=== PATIENT | female | born 1940 | race Caucasian/White ===

== ENCOUNTER → 2016-11-28 | Outpatient (CLI) | payer BC ==
[~2016-11-28] MED LIST: AMB5 PO; ATEN50TA8 PO; CALC-5 PO; CHOL100010 PO; MCR/40125 PO; PRLSR20 PO; SIMV20TA2 PO
[2016-11-28 13:50] LABS: ESTIMATED AVERAGE GLUCOSE 123 mg/dl; HA1C FLAG Normal (Normal)
[2016-11-28 15:35] LABS: ALT/SGPT 19 U/L (12-78); BLOOD UREA NITROGEN 24 mg/dl (7-18); BUN/CREATININE RATIO 20.2 (10-20); CALCIUM 9.4 mg/dl (8.5-10.1); CARBON DIOXIDE 30 mmol/L (21-32); CHLORIDE 105 mmol/L (98-107); GLUCOSE 101 mg/dl (70-99); POTASSIUM 4.1 mmol/L (3.5-5.1); SODIUM 142 mmol/L (136-145)
[2016-11-28 15:47] LABS: AST/SGOT 21 U/L (15-37); CHOLESTEROL 185 mg/dl (0-200); HDL CHOLESTEROL 61 mg/dl; LDL CHOLESTEROL CALCULATED 102 mg/dl; TRIGLYCERIDES 111 mg/dl (0-150); VERY LOW DENSITY LIPOPROT CALC 22 mg/dl
--- NOTE | 2016-12-03 13:40 | CODING QUERY MEDICAL NECESSITY ---
SUPPORTING DIAGNOSIS NEEDED A supporting diagnosis is required for the test/procedure performed on this patient in order for us to be reimbursed by the patient's insurance. Please provide a supporting diagnosis for the following test/procedure listed below next to the test name along with your signature. *If there is no additional diagnosis for this patient that would support the following test/procedure please document that below next to the test/procedure. Test(s)/Procedure(s) that require a supporting diagnosis: DOS 11/28 * Hba1c DIAGNOSIS: Provider Signature: Date: Thank you Yelitza Sanchez Health Information Management Once completed, please kindly fax back to [phone] For questions please call [phone]
== END | disposition home or self-care (01) ==
LOC: C.LABBC 09:19
PROVIDERS: ATTEND Internal Medicine
DX: E78.00 Pure hypercholesterolemia, unspecified (principal); R73.03 Prediabetes; I10 Essential (primary) hypertension

== ENCOUNTER → 2016-11-29 | Outpatient (CLI) | payer BC ==
--- NOTE | 2016-11-29 13:04 | MAMMOGRAPHY REPORT ---
BILATERAL DIGITAL SCREENING MAMMOGRAM WITH CAD: 11/29/2016 CLINICAL HISTORY: Routine screening. Patient has no complaints. TECHNIQUE: Current study was also evaluated with a Computer Aided Detection (CAD) system. Bilatera l CC and MLO views were obtained. COMPARISON: Comparison is made to exams dated: 11/28/2015 mammogram, 11/25/2014 mammogram, 11/24/2013 mammogram, 11/20/2012 mammogram, 11/07/2011 ultrasound, and 11/07/2011 mammogram - [facility]. BREAST COMPOSITION: There are scattered areas of fibroglandular density in both breasts. FINDINGS: No suspicious masses, calcifications, or areas of architectural distortion are noted in e ither breast. There has been no significant interval change compared to prior exams. There is stabl e asymmetry in breast size, right larger than left. Bilateral benign appearing calcifications are n ot significantly changed. Bilateral asymmetries are stable, including a small nodular asymmetry see n within the right anterior breast on the MLO view which is stable dating back to at least the 2010 exam. IMPRESSION: ACR BI-RADS CATEGORY 2: BENIGN There is no mammographic evidence of malignancy. A 1 year screening mammogram is recommended. The p atient will receive written notification of the results. Approximately 10% of breast cancers are not detected with mammography. A negative mammographic repor t should not delay biopsy if a clinically suggestive mass is present. Ashwini Leblanc M.D. /:11/29/2016 11:20:10 Tile Presser: Ana FLOOD)(Chuyita), [facility] letter sent: Normal 1/2 BI-RADS Code: ACR BI-RADS Category 2: Benign
== END | disposition home or self-care (01) ==
LOC: C.MAMM 10:34
PROVIDERS: ATTEND Obstetrics & Gynecology
DX: Z12.31 Encounter for screening mammogram for malignant neoplasm of breast (principal)

== ENCOUNTER → 2017-01-14 | Outpatient (CLI) | payer BC | LOC: C.PAPS 16:12 | PROVIDERS: ATTEND Obstetrics & Gynecology | DX: R68.89 Other general symptoms and signs (principal) ==

== ENCOUNTER → 2017-05-29 | Outpatient (CLI) | payer BC ==
[2017-05-29 13:41] LABS: URINE APPEARANCE CLOUDY (CLEAR); URINE BILIRUBIN NEG (NEG); URINE COLOR YELLOW; URINE EPITHELIAL CELL AUTO 0-5 /lpf (0-5); URINE NITRITE POS (NEG); URINE PH 5.5 (4.5-7.5); URINE SPECIFIC GRAVITY 1.017 (1.000-1.030); UROBILINOGEN NEG (NEG)
[2017-05-29 13:50] LABS: MANUAL MICROSCOPIC REQUIRED? NO; REVIEW REQ? NO
== END | disposition home or self-care (01) ==
LOC: C.LABBC 10:46
PROVIDERS: ATTEND Internal Medicine
DX: R39.9 Unspecified symptoms and signs involving the genitourinary system (principal)

== ENCOUNTER → 2017-07-12 | Outpatient (CLI) | payer BC ==
--- NOTE | 2017-07-12 15:20 | ECHOCARDIOGRAM REPORT ---
*NOTICE TO RECEIVING DEMOCRAT AGENCY This information is strictly Confidential and protected under [place] law. [place] law prohibits you from making any further disclosure of this information unless further disclosure is expressly permitted by the written consent of the person to whom it pertains or is authorized by law. A general authorization for the release of medical or other information is not sufficient for this purpose. Hospital accepts no responsibility if the information is made available to any other person, INCLUDING THE PATIENT. Interpretation Summary * Name: UCHE HUTSON Study Date: 07/12/2017 12:41 PM BP: 138/46 mmHg * Patient Location: [facility] HR: 56 * : 1940 (M/d/yyyy) Gender: Female Height: 64 in * Age: 76 yrs Ethnicity: [place] Weight: 200 lb * Ordering Physician: Sanchez Ivy * Referring Physician: Sanchez Ivy * Performed By: Elin Bailey RDCS * * Reason For Study: Aortic stenosis * BSA: 2.0 m2 * -- Conclusions -- * Left ventricular systolic function is normal. * Diastolic dysfunction, Grade II, consistent with elevated left atrial pressure. * Mild aortic regurgitation. * Mild valvular aortic stenosis. * Right ventricular systolic pressure is normal. Procedure Details * A complete two-dimensional transthoracic echocardiogram was performed (2D, M-mode, Doppler and color flow Doppler). Left Ventricle * The left ventricle is normal in size. * There is normal left ventricular wall thickness. * Ejection Fraction = 60-65%. * Left ventricular systolic function is normal. * Diastolic dysfunction, Grade II, consistent with elevated left atrial pressure. * The left ventricular wall motion is normal. Right Ventricle * The right ventricle is normal in size and function. * The right ventricular systolic function is normal as assessed by tricuspid annular plane systolic excursion (TAPSE) (normal >1.5 cm). Atria * The left atrial size is normal. * Right atrial size is normal. Mitral Valve * The mitral valve is grossly normal. * Significant mitral regurgitation is absent. Tricuspid Valve * The tricuspid valve is not well visualized, but is grossly normal. * There is trace tricuspid regurgitation. * Right ventricular systolic pressure is normal. Aortic Valve * The aortic valve is not well visualized. * Mild valvular aortic stenosis. * Mild aortic regurgitation. Great Vessels * The aortic root is normal size. Pericardium/Pleural * There is no pericardial effusion. Great Vessels * Normal inferior vena cava diameter and respiratory variation suggests normal central venous pressure. MMode 2D Measurements and Calculations IVSd 0.92 cm LVIDd 4.0 cm LVIDs 2.8 cm LVPWd 0.94 cm IVS/LVPW 0.98 FS 30.9 % EDV(Teich) 69.8 ml ESV(Teich) 28.6 ml EF(Teich) 59.1 % EDV(cubed) 63.8 ml ESV(cubed) 21.1 ml EF(cubed) 67.0 % LV mass(C)d 114.4 grams LV mass(C)dI 58.5 grams/m\S\2 SV(Teich) 41.2 ml SI(Teich) 21.1 ml/m\S\2 SV(cubed) 42.7 ml SI(cubed) 21.8 ml/m\S\2 Ao root diam 3.6 cm Ao root area 10.4 cm\S\2 ACS 1.8 cm asc Aorta Diam 2.9 cm LVOT diam 2.0 cm LVOT area 3.0 cm\S\2 LVAd ap4 28.8 cm\S\2 LVLd ap4 6.9 cm EDV(MOD-sp4) 96.4 ml EDV(sp4-el) 101.6 ml LVAs ap4 15.7 cm\S\2 LVLs ap4 5.9 cm ESV(MOD-sp4) 35.0 ml ESV(sp4-el) 35.3 ml EF(MOD-sp4) 63.7 % EF(sp4-el) 65.2 % LVAd ap2 14.7 cm\S\2 LVLd ap2 6.6 cm EDV(MOD-sp2) 28.3 ml EDV(sp2-el) 27.9 ml LVAs ap2 9.0 cm\S\2 LVLs ap2 6.1 cm ESV(MOD-sp2) 11.1 ml ESV(sp2-el) 11.2 ml EF(MOD-sp2) 60.9 % EF(sp2-el) 59.7 % LVLd %diff -5.01 % EDV(MOD-bp) 53.8 ml LVLs %diff 2.5 % ESV(MOD-bp) 20.1 ml EF(MOD-bp) 62.7 % SV(MOD-sp4) 61.4 ml SI(MOD-sp4) 31.4 ml/m\S\2 SV(MOD-sp2) 17.2 ml SI(MOD-sp2) 8.8 ml/m\S\2 SV(MOD-bp) 33.7 ml SI(MOD-bp) 17.2 ml/m\S\2 SV(sp4-el) 66.3 ml SI(sp4-el) 33.9 ml/m\S\2 SV(sp2-el) 16.7 ml SI(sp2-el) 8.5 ml/m\S\2 Doppler Measurements and Calculations MV E max trey 94.7 cm/sec MV A max trey 56.7 cm/sec MV E/A 1.7 MV dec time 0.19 sec Ao V2 max 280.4 cm/sec Ao max PG 31.4 mmHg Ao max PG (full) 29.1 mmHg Ao V2 mean 185.9 cm/sec Ao mean PG 15.9 mmHg Ao V2 VTI 68.9 cm BERNICE(V,A) 0.83 cm\S\2 BERNICE(V,D) 0.83 cm\S\2 AI max trey 332.8 cm/sec AI max PG 44.3 mmHg AI dec slope 122.0 cm/sec\S\2 AI P1/2t 798.7 msec LV V1 max PG 2.3 mmHg LV V1 max 76.5 cm/sec SV(Ao) 714.8 ml SI(Ao) 365.5 ml/m\S\2 PA V2 max 65.6 cm/sec PA max PG 1.7 mmHg PA acc slope 431.4 cm/sec\S\2 PA acc time 0.13 sec TR max trey 146.6 cm/sec PA pr(Accel) 22.8 mmHg
== END | disposition home or self-care (01) ==
LOC: C.CPL 12:26
PROVIDERS: ATTEND Internal Medicine
DX: I35.0 Nonrheumatic aortic (valve) stenosis (principal)

== ENCOUNTER → 2017-11-07 | Outpatient (CLI) | payer BC | END | disposition home or self-care (01) | LOC: C.LAB1850 10:35 | PROVIDERS: ATTEND Internal Medicine | DX: E78.00 Pure hypercholesterolemia, unspecified (principal); M25.50 Pain in unspecified joint; R73.9 Hyperglycemia, unspecified ==

== ENCOUNTER → 2017-12-02 | Outpatient (CLI) | payer BC ==
--- NOTE | 2017-12-03 07:38 | MAMMOGRAPHY REPORT ---
BILATERAL DIGITAL SCREENING MAMMOGRAM TOMOSYNTHESIS WITH CAD: 12/02/2017 CLINICAL HISTORY: Routine screening. Patient reports itchy right nipple. TECHNIQUE: Breast tomosynthesis in addition to standard 2D mammography was performed. Current study was also evaluated with a Computer Aided Detection (CAD) system. COMPARISON: Comparison is made to exams dated: 11/29/2016 mammogram, 11/28/2015 mammogram, 11/25/2014 m ammogram, 11/24/2013 mammogram, 11/20/2012 mammogram, and 11/01/2011 mammogram - [facility] enter. BREAST COMPOSITION: There are scattered areas of fibroglandular density in both breasts. FINDINGS: There are mild vascular calcifications in the breasts. The glandular pattern is similar to prior mammograms. No new suspicious mass, architectural distortion or cluster of microcalcification s is seen. IMPRESSION: ACR BI-RADS CATEGORY 1: NEGATIVE 1. Stable bilateral mammograms, without mammographic evidence of malignancy. 2. The patient reported an itchy right nipple area to our registered vascular technologist (rvt) during the screen ing exam. Clinical follow-up is recommended for this symptom and if indicated, additional evaluation by surgery/dermatology may be needed. 3. Otherwise, a 1 year screening mammogram is recommended. The patient will receive written notification of the results. Approximately 10% of breast cancers are not detected with mammography. A negative mammographic report should not delay biopsy if a clinically suggestive mass is present. Sol Huynh M.D. ay/:12/02/2017 12:28:30 Petrology Teacher: Holly BROWNE(Miguel)(Chuyita), [facility] letter sent: Normal 1/2 BI-RADS Code: ACR BI-RADS Category 1: Negative
== END ==
LOC: C.MAMM 09:59
PROVIDERS: ATTEND Obstetrics & Gynecology
DX: Z12.31 Encounter for screening mammogram for malignant neoplasm of breast (principal)

== ENCOUNTER → 2017-12-06 | Outpatient (CLI) | payer BC ==
[2017-12-06 11:31] LABS: ALT/SGPT 23 U/L (12-78); AST/SGOT 22 U/L (15-37); BLOOD UREA NITROGEN 33 mg/dl (7-18); CALCIUM 9.8 mg/dl (8.5-10.1); CARBON DIOXIDE 29 mmol/L (21-32); CREATININE 1.21 mg/dl (0.60-1.20); GLUCOSE 102 mg/dl (70-99); HEMOGLOBIN A1C 5.9 % (4.5-5.6); POTASSIUM 4.1 mmol/L (3.5-5.1); SODIUM 137 mmol/L (136-145)
[2017-12-06 11:33] LABS: CHOLESTEROL 200 mg/dl (0-200); LDL CHOLESTEROL CALCULATED 126 mg/dl
== END | disposition home or self-care (01) ==
LOC: C.LABBC 08:28
PROVIDERS: ATTEND Internal Medicine
DX: E78.00 Pure hypercholesterolemia, unspecified (principal); E73.9 Lactose intolerance, unspecified

== ENCOUNTER 2019-05-29 08:07 | Inpatient (IN) ==
--- NOTE | 2019-05-13 15:52 | PAT Medication Instructions ---
Medication Instructions Date of Service May 13, 2019 Home Medications calcium carbonate-vitamin D3 [Calcium 500 + D] 1 tab PO BID cholecalciferol (vitamin D3) [Vitamin D3] 1,000 unit PO BID apixaban 5 mg tablet 5 mg PO BID metoprolol succinate ER 100 mg tablet,extended release 24 hr 100 mg PO QAM telmisartan 20 mg tablet 20 mg PO QAM vitamins A,C,U-akvn-sqkudj 14,320 unit-226 mg-200 unit capsule 1 cap PO BID ibuprofen 200 mg tablet 400 mg PO QID PRN simvastatin 20 mg tablet 20 mg PO QPM hydrochlorothiazide 12.5 mg PO QAM omeprazole 20 mg PO QAM zaleplon 5 mg PO DAILY PRN ASK your surgeon for instructions ibuprofen 200 mg tablet 400 mg PO QID PRN ASK your prescriber and surgeon apixaban 5 mg tablet 5 mg PO BID (in order for spinal anesthesia, apixaban/Eliqu is needs to be stopped 72 hours/3 days prior to surgery- please check if okay with doctor that prescribes this to you) DO NOT take the morning of surgery calcium carbonate-vitamin D3 [Calcium 500 + D] 1 tab PO BID cholecalciferol (vitamin D3) [Vitamin D3] 1,000 unit PO BID telmisartan 20 mg tablet 20 mg PO QAM vitamins A,C,C-niww-mcelpa 14,320 unit-226 mg-200 unit capsule 1 cap PO BID hydrochlorothiazide 12.5 mg PO QAM zaleplon 5 mg PO DAILY PRN Take morning of surgery With a small sip of water, OTHERWISE NOTHING TO EAT OR DRINK AFTER MIDNIGHT: metoprolol succinate ER 100 mg tablet,extended release 24 hr 100 mg PO QAM omeprazole 20 mg PO QAM Take evening before surgery calcium carbonate-vitamin D3 [Calcium 500 + D] 1 tab PO BID cholecalciferol (vitamin D3) [Vitamin D3] 1,000 unit PO BID simvastatin 20 mg tablet 20 mg PO QPM zaleplon 5 mg PO DAILY PRN (if needed) Other Notes If you have any questions please call us at [phone] or [phone] or [phone] or [phone]
--- NOTE | 2019-05-14 09:08 | Anesthesiology Consultation ---
Date of Service May 14, 2019 Assessment & Plan (1) Encounter for pre-operative examination: - Awaiting review preop testing (labs, EKG, CXR). - Per patient, she is seeing cardiology prior to surgery- Awaiting cardiology office visit scheduled 05/21 ([facility] cardio). - Moderate aortic stenosis: BERNICE 1.0cm2, MG 13.2mmhg per 06/2018 ECHO. Discussed SAB vs. GA with patient- she voiced understanding. Chart Review Chart Review: Patient seen in Pre Admission Testing Teaching & Discussion Pre-Anesthesia Teaching/Discussion Notes: Instructed NPO after midnight before surgery,except medications with 15 cc of water. Medication instructions provided according to the PAT guidelines. History Surgery Operation Date: 05/29/19 10:40 Proposed Procedures p Right Total Knee Arthroplasty - Regan Garcia MD Height/Weight Height: 5 ft 3 in Weight: 94.2 kg Allergies Allergy/AdvReac Type Severity Reaction Status Date / Time No Known Drug Allergies Allergy Verified 05/12/19 14:30 Medications Home Medications Medication Instructions Recorded Confirmed Last Taken calcium carbonate-vitamin D3 1 tab PO BID 04/19/18 05/12/19 05/12/18 08:00 [Calcium 500 + D] cholecalciferol (vitamin D3) 1,000 unit PO BID 04/19/18 05/12/19 05/12/18 08:00 [Vitamin D3] apixaban 5 mg tablet 5 mg PO BID 02/25/19 05/12/19 Unknown metoprolol succinate ER 100 mg 100 mg PO QAM tab 02/25/19 05/12/19 Unknown tablet,extended release 24 hr telmisartan 20 mg tablet 20 mg PO QAM tab 02/25/19 05/12/19 Unknown vitamins A,C,D-ysif-ssrefa 14,320 1 cap PO BID 02/25/19 05/12/19 Unknown unit-226 mg-200 unit capsule ibuprofen 200 mg tablet 400 mg PO QID PRN tab 04/16/19 05/12/19 Unknown simvastatin 20 mg tablet 20 mg PO QPM tab 04/16/19 05/12/19 Unknown hydrochlorothiazide 12.5 mg PO QAM 05/12/19 05/12/19 Unknown omeprazole 20 mg PO QAM 05/12/19 05/12/19 Unknown zaleplon 5 mg PO DAILY PRN 05/12/19 05/12/19 Unknown Past Medical History Medical History Paroxysmal atrial fibrillation Irritable bowel syndrome with diarrhea Hypertension Hypercholesterolemia Aortic stenosis Moderate aortic stenosis (BERNICE 1.0cm2, MG 13.2mmhg) Cataract right/left Diverticular disease GERD (gastroesophageal reflux disease) controlled Hx of basal cell carcinoma forehead Macular degeneration right/left Osteoarthritis Prediabetes Exercise / Class Metabolic Activity III < 4 Walking/Shop/Light housework Past Family History Family History Mother Family history of diabetes mellitus Mother Family history of diabetes mellitus Past Surgical History Surgical History History of tubal ligation History of cholecystectomy History of adenoidectomy History of appendectomy History of carpal tunnel release LEFT History of colonoscopy History of tonsillectomy History of tooth extraction History of total knee replacement LEFT Past Anesthesia History No Hx of Anesthesia Complications (except PONV) and No Family Hx of Anesthesia Complications History of PONV No Hx of Motion Sickness (childhood) and History of PONV Social History Smoking Status: Former smoker Do You Dip or Chew Tobacco: No Smoking End Date: QUIT 50+ YEARS AGO Hx Alcohol Use: Yes Alcohol type: wine alcohol intake frequency: holidays/special occasions only Hx Substance Use: No substance use type: does not use Review of Systems Reflux controlled. Occasional palpitations. Patient denies chest pain, shortness of breath, joint pain, cough, wheezing. Physical Exam Vital Signs VITALS BP 138/88 P 94 TEMP 97.9 SP02 97%RA RESP 16 PHYSICAL Full neck and c-spine range of motion. Full TMJ range of motion. TMD 4 finger breaths Mallampati Score 2 Dentition: lower partial, several crowns "all over" Lungs: clear throughout to auscultation Cardiac: regular rate and rhythm, I/ systolic murmur Spine: normal Carotid arteries: negative bruit Extremities: no edema Testing Echocardiogram Date: 06/19/18 EF 55-60%. Moderate cLVH. Grade 2 DD. Mild LAD. Mild AR. Moderate aortic stenosis (AA 1.0cm2, MG 13.2mmhg).
--- NOTE | 2019-05-14 09:50 | XRay Report ---
XR chest Pre-admission PA/Lat HISTORY: Preop. COMPARISON: Chest 02/13/2006. FINDINGS: The heart remains mildly enlarged. No pneumothorax. No pleural effusions. No focal lung con solidations to suggest pneumonia. No evidence for pulmonary edema. Mild diffuse interstitial thickeni ng which is slightly progressed. IMPRESSION: 1. Mild diffuse interstitial thickening which is slightly progressed. This is likely chronic. No foca l lung consolidations to suggest pneumonia. 2. Stable mild cardiomegaly. Electronically signed by: Denton Brady M.D. 05/14/2019 9:49 AM
[2019-05-14 10:05] LABS: Basophils # (auto) 0.03 K/uL (0-0.2); Basophils % (auto) 0.4 %; Eosinophils # (auto) 0.21 K/uL (0-0.5); Eosinophils % (auto) 2.9 %; Hematocrit (blood only) 42.1 % (37-47); Hemoglobin 13.7 g/dL (12.0-16.0); Immature Granulocytes # (auto) 0.01 K/uL (0.00-0.02); Immature Granulocytes % (auto) 0.1 %; Lymphocytes # (auto) 1.84 K/uL (1.2-3.4); Mean Corpuscular Hemoglobin 30.6 pg (25-34); Mean Corpuscular Hgb Conc 32.5 g/dL (32-36); Mean Corpuscular Volume 94.2 fL (80-100); Mean Platelet Volume 11.3 fL (7.4-10.4); Monocytes # (auto) 0.47 K/uL (0.11-0.59); Monocytes % (auto) 6.4 %; Neutrophils # (auto) 4.79 K/uL (1.4-6.5); Neutrophils % (auto) 65.2 %; Platelet Count 197 K/uL (130-400); RDW Coefficient of Variation 13.5 % (11.5-14.5); RDW Standard Deviation 46.6 fL (36.4-46.3); Red Blood Count 4.47 M/uL (4.2-5.4); White Blood Count 7.35 K/uL (4.8-10.8)
[2019-05-14 10:23] LABS: INR 1.2 (0.9-1.1); Partial Thromboplastin Ratio 1.1; Partial Thromboplastin Time 29.3 Seconds (21.0-31.0); Prothrombin Time 11.9 Seconds (9.0-12.0)
--- NOTE | 2019-05-23 10:29 | History and Physical Report ---
DATE OF ADMISSION: 05/29/2019 CHIEF COMPLAINT: Persistent right knee pain and discomfort. 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 She has a long history of right knee pain. I did a left knee replacement many years ago and she has done pretty well from this. Over the years, she is developing more debilitated pain in her right knee. We put injections in there which became less successful over time. They helped for maybe 3 weeks at this point. She has difficulty walking any distance. The more she walks, the more it hurts. She has pain going up and down stairs. She has nighttime pain. She would like to have her right knee replaced. PAST MEDICAL HISTORY: 1. Hypertension. 2. Elevated cholesterol. 3. History of AFib, on Eliquis. 4. Spine arthritis. 5. Gastroesophageal reflux disease. 6. Mild obesity with BMI of 37. PAST SURGICAL HISTORY: Previous surgeries include: 1. Tubal ligation. 2. Cholecystectomy. 3. Left knee replacement. 4. Right trigger thumb repair. 5. Left trigger thumb repair. ALLERGIES: None. CURRENT MEDICINES: 1. Omeprazole once a day. 2. Metoprolol 100 mg. 3. Simvastatin 20 mg a day. 4. Eliquis 5 mg twice a day. 5. Hydrochlorothiazide 12.5 mg. 6. PreserVision twice a day. 7. Calcium with D once a day. SOCIAL HISTORY: A 78-year-old white female. 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 Does not smoke. No significant alcohol intake. FAMILY HISTORY: Noncontributory. REVIEW OF SYSTEMS: Significant for atrial fibrillation and she was on Xarelto. She is followed by Dr. Ramirez. Denies any chest pain or shortness of breath. No history of DVT or PE. No known bleeding problems. PHYSICAL EXAMINATION: GENERAL: Shows a pleasant elderly female. Looks to be in pretty good health. HEENT: Benign. NECK: Supple. No lymphadenopathy. LUNGS: Clear to auscultation. HEART: Has an irregularly irregular rhythm. Rate is fairly normal. ABDOMEN: Soft, nontender, nondistended. EXTREMITIES: Grossly neurovascularly intact except as follows. Examination of the right lower extremity reveals the patient ambulates with a bit of a limp. She has got fairly neutral alignment to her knee. Range of motion is about 5 degrees short of full extension to 115 degrees of flexion. She is diffusely tender to palpate. No instability. No pain with hip motion. X-RAYS: X-ray of the right knee reviewed. It shows a right knee tricompartment DJD. She has complete loss of her lateral joint space. She has got chondrocalcinosis. She has degenerative changes in all 3 compartments. ASSESSMENT: A 78-year-old white female status post left knee replacement with right knee tricompartment degenerative joint disease. She has failed conservative treatment and would like to have her right knee replaced. PLAN: We will take her to the Operating Room and do right total knee replacement. The risks and benefits of this procedure were explained to the patient and include but not limited to DVT, PE, , infection, neurological injury, vascular injury, bleeding problem, pain, limited range of motion, stiffness, failure to relieve symptoms, incomplete relief of symptoms, need for further surgery in future, fracture, leg length inequality, nerve palsy, etc. The patient understands and desires to proceed. Informed consent was obtained. We did talk about holding her Eliquis 3 days preop. She will take her beta-tong the morning of surgery. She is hoping to be discharged home using the home health program. Her family including her granddaughter and children are going to help and assist in her care.
[~2019-05-29 08:07] MED LIST changes: +ACETAMINOPHEN 500 MG TAB PO SCH; -AMB5 PO; -ATEN50TA8 PO; +BUPIVACAINE 0.5 % 5 MG/1 ML PF 10ML VIAL ONE; -CALC-5 PO; +CEFAZOLIN 2000MG 2,000 MG/15 ML SYR IV SCH; -CHOL100010 PO; +FAMOTIDINE 20 MG TAB PO SCH; +GABAPENTIN 300 MG CAP PO SCH; +LR 500ML BOLUS, THEN 15ML/HR IV SCH; +LR 60ML/HR IV SCH; -MCR/40125 PO; +METOCLOPRAMIDE HCL 10 MG TABLET PO SCH; -PRLSR20 PO; +ROPIVACAINE 0.5% 5 MG/ML 30 ML VIAL ONE; -SIMV20TA2 PO; +TRANEXAMIC ACID 1,000 MG **IV Intra-op IV SCH
--- NOTE | 2019-05-29 08:25 | History & Physical Bridge Note ---
Date of Service May 29, 2019 History & Physical Bridge Note I have examined the patient, reviewed the History & Physical and in the interval since the performance of the History & Physical I have noted the following changes of clinical significance: no changes noted
[2019-05-29] MEDS ORDERED: MIDAZOLAM HCL 1 MG/ML 2ML VIAL ONE (08:58)
[2019-05-29] MEDS ORDERED: fentaNYL citrate 100 MCG/2 ML VIAL ONE (08:58)
[2019-05-29] MEDS ORDERED: BACITRACIN INJ 50,000 UNIT VIAL ONE (10:41)
[2019-05-29] MEDS ORDERED: PHENYLEPHRINE HCL 10 MG/ML VIAL ONE (11:30)
[2019-05-29] MEDS ORDERED: PROPOFOL IV EMULSION 10 MG/ML 20 ML VIAL IV ONE ×2 (11:30→11:54)
[2019-05-29] MEDS: SODIUM CHLORIDE 0.9% PF 50 ML VIAL ONE ×2 (11:43→12:05)
[2019-05-29] MEDS: BUPIVACAINE LIPOSOME 1.3% 266 MG/20 ML VIAL ONE ×2 (11:43→12:05)
[2019-05-29] MEDS: BUPIVACAINE/EPINEPHRINE 0.25% 1:200,000 30 ML VIAL ONE ×2 (11:43→12:05)
[2019-05-29] MEDS: BUPIVACAINE LIPOSOME/PF 266 MG, BUPIVACAINE/EPINEPHRINE 50 ML, SODIUM CHLORIDE 0.9% 30 ... INFIL SCH ×2 (11:44→12:04)
[2019-05-29] MEDS ORDERED: ePHEDrine sulfate 50 MG/ML AMP IV PRN (11:48)
[2019-05-29] MEDS ORDERED: ATROPINE SULFATE 0.1 MG/ML 10ML SYR IV PRN (11:48)
--- NOTE | 2019-05-29 12:35 | Post Operative Brief Note ---
PG Immediate Post Op with CF Date of Surgery May 29, 2019 Pre & Post Diagnosis Operation Date: 05/29/19 10:40 Pre-Op Diagnosis: Right Knee Degenerative Joint Disease Post-Op Diagnosis: Right Knee Degenerative Joint Disease I identified the patient and participated in the time-out.: Yes Procedure Operation Date: 05/29/19 10:40 Actual Procedures p Right Total Knee Arthroplasty, Cemented(Right) - Regan Garcia MD Surgeon Regan Garcia MD Trimming Machine Set Up Operator Denise, PAC Estimated Blood Loss 50 Findings Consistent with Post-Op Diagnosis Fluids 1500 cc Specimens Specimen Description: Permanent Specimen A: Right knee bone and tissue Drains Moralez Catheter (A 16 Setswana moralez catheter was inserted by ST Eva, without difficulty, clear yellow urine obtained, output to be monitored by Ansesthesia.) Anesthesia Type Spinal MAC Complications none Disposition Accompanied Patient To Recovery: No Disposition: Recovery Room
--- NOTE | 2019-05-29 13:14 | Operative Report ---
DATE OF OPERATION: 05/29/2019 SURGEON: Regan Garcia MD STEAM PRESS TENDER: TIERRA Rodriguez PREOPERATIVE DIAGNOSIS: Right knee degenerative joint disease. POSTOPERATIVE DIAGNOSIS: Right knee degenerative joint disease. PROCEDURE PERFORMED: Right cemented posterior stabilized total knee arthroplasty. COMPLICATIONS: None. ESTIMATED BLOOD LOSS: 50 mL. FLUID REPLACEMENT: 1500 mL crystalloid fluid replacement. ANESTHESIA: Spinal with adductor canal block. DRAINS: None. SPECIMENS: Right knee sent for pathology. 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 She underwent a left knee replacement 13 years ago. She has done pretty well with this. The past several years, she developed increased pain and discomfort in her right knee. She has been through extensive conservative treatment including medicines as well as injections. She cannot really take NSAIDs due to anticoagulation with Eliquis. She failed conservative treatment. She elected to proceed with surgical treatment. OPERATIVE FINDINGS: Operative findings were advanced right knee DJD. She had tricompartment disease with grade 4 bone on bone disease in all 3 compartments, most severe in the medial side. She did have a complete cartilage loss of the medial and lateral tibial plateaus. She had a moderate sized joint effusion. Diffuse osteopenia. OPERATIVE IMPLANTS: Operative implants consisted of: 1. Biomet Vanguard size 65 right posterior stabilized femoral component. 2. Biomet size 67 tibial tray. 3. A 10 mm posterior stabilized polyethylene insert. 4. A 28 x 8 all poly patella. OPERATIVE PROCEDURE: The patient was taken to the operating room, identified and placed on the operating table in supine position. All contact areas were appropriately padded. IV antibiotics provided by anesthesia team. A spinal anesthetic and adductor canal block had been provided in the holding area. Manuel catheter was placed in sterile fashion. Right thigh tourniquet was then placed in the right lower extremity was then prepped and draped in usual sterile fashion. The right leg was elevated and exsanguinated with an Esmarch and tourniquet was placed at 300 mmHg. An anterior approach of the right knee was then performed through a longitudinal incision centered over the patella. Sharp dissection was carried through subcutaneous tissues down to the level of the extensor mechanism. Medial parapatellar arthrotomy incision was made. Some subperiosteal dissection was carried out medially. The fat pad resected from beneath the patellar tendon. The lateral patellofemoral ligament was released. The patella was everted and knee was flexed. The osteophytes were taken off the distal femur. The ACL and PCL were then released from the distal femur and the tibia subluxated anteriorly. The external tibial alignment jig was then placed in the anterior face of the tibia and adjusted 14 mm medially. Proximal tibial cut was made to remove about 2-3 mm of bone from the most deficient aspect of the medial tibial plateau. She did not have a lot of bony wear, just cartilage loss. The tibia was then sized to a size 67. We tried to maximize coverage due to her osteopenia. Attention was then drawn to the femur. The distal femur was entered with a sharp drill. Intramedullary canal was suctioned. A right 5-degree valgus cutting guide was placed. Distal femoral cutting block was pinned in place. Distal femoral cut was made to take an additional 3 mm of bone off distal femur. The femur was then sized to a size 65. We did downsize this almost an entire size. The AP cutting block was pinned parallel to the epicondylar axis, which was 4 degrees of external rotation. The anterior cut, anterior chamfer, posterior cut, posterior chamfer cuts were made. Box cutting guide was placed and adjusted slightly lateral and the box cut was made. The knee was flexed. The remnants of the medial and lateral menisci were excised. The osteophytes were taken off the posterior aspect of the femur. A trial femoral component was placed. The tibial tray was pinned in maximum external rotation and the drill and stem punch were used to create the defect in proximal tibia for the tibial tray. The knee was then trialed and the 10 mm insert fit most appropriately. Attention was then drawn to the patella. The patella was cleaned of all soft tissues. Patella thickness measured about 19 mm in thickness, it was cut down to 13. It was sized to a size 28 patella. Lug holes were drilled for a 28 patella. The lateral osteophyte was removed. Patella button was placed. Knee was taken through range of motion, patella tracked nicely with no thumbs test. Attention was then drawn toward placement of permanent components. All trial components were removed. Bone plug was placed in the distal femur to limit blood loss. A double batch of Palacos G cement was mixed. A BiomDafiti Vanguard size 65 right posterior stabilized femoral component, a size 67 tibial tray, a 10 mm posterior stabilized polyethylene insert, and a 28 x 8 all poly patella then cemented in place. Knee was brought into full extension until cement hardened. Final cement check was then performed. Pericapsular tissues were injected with a total of 100 mL of combination of 20 mL of Exparel, 30 mL of normal saline, 50 mL of 0.25% Marcaine with epinephrine. The patient did receive 1 gram of tranexamic acid. The tourniquet was then let down for final tourniquet time of 52 minutes. Hemostasis was assured using electrocautery. The wound was once again irrigated. The extensor mechanism was then closed with combination of #1 PDS suture and #1 Vicryl suture in a [id number] fashion. Extensor mechanism was checked and found to be intact. Subcutaneous tissues were then closed with #2 Dexon suture in a buried interrupted fashion. Skin was closed with skin david. Leg was then cleaned, dried and a sterile dressing of Xeroform, 4 x 4, sterile cast padding and Skyler bandage were applied. The patient then transferred to the recovery room in stable condition. The patient tolerated the procedure well with no complications. All needle and sponge counts were correct at the end of the operation. I attest to the content of the Intraoperative Record and any orders documented therein. Any exception s are noted below.
[2019-05-29] MEDS ORDERED: ONDANSETRON INJ 2 MG/ML 2 ML VIAL ONE (13:19)
[2019-05-29] MEDS ORDERED: ONDANSETRON INJ 2 MG/ML 2 ML VIAL IV PRN (13:21)
--- NOTE | 2019-05-29 13:27 | XRay Report ---
XR knee RT 2V routine CLINICAL HISTORY: Postoperative evaluation. COMPARISON: Knee radiographs January 08, 2019. FINDINGS: Alignment of the total right knee arthroplasty is anatomic. No fracture or unexpected radi opaque foreign body. There are skin david. IMPRESSION: Expected findings following total right knee arthroplasty. Electronically signed by: Otis Cramer M.D. 05/29/2019 1:26 PM
[2019-05-29] MEDS: SODIUM CHLORIDE 0.9% 1000ML 1,000 ML IV SCH ×2 (13:45→23:25)
[2019-05-29] MEDS ORDERED: bisacodyL 10 MG SUPP PR PRN (13:57)
[2019-05-29] MEDS ORDERED: ZALEPLON 5 MG CAPSULE PO PRN (13:57)
[2019-05-29] MEDS ORDERED: METOCLOPRAMIDE HCL INJ 5 MG/ML 2 ML VIAL IV PRN (13:57)
[2019-05-29] MEDS ORDERED: MAGNESIUM HYDROXIDE SUSP 30 ML UDC PO PRN (13:57)
[2019-05-29] MEDS ORDERED: ALUMINUM/MAGNESIUM SUSP 30 ML UDC PO PRN (13:57)
[2019-05-29] MEDS ORDERED: HYDROmorphone INJ 0.5 MG/0.5 ML SYR IV PRN (13:57)
[2019-05-29] MEDS ORDERED: NALOXONE HCL 0.4 MG/1 ML VIAL/CARP IV PRN (13:57)
--- NOTE | 2019-05-29 14:00 | Anesthesiology Progress Note ---
Date of Service May 29, 2019 Anesthesia Post Procedure Vital Signs Vital Signs: Temp Pulse Pulse Resp BP Pulse Ox 05/29/19 13:30 84 17 98/67 L 97 05/29/19 13:20 88 19 103/59 L 94 05/29/19 13:10 85 14 103/69 97 05/29/19 13:00 36.9 C 89 20 101/48 L 100 05/29/19 12:50 90 16 104/48 L 100 05/29/19 12:41 36.4 C L 93 H 17 126/82 100 05/29/19 09:16 36.9 C 98 H 18 127/75 98 Transfer of Care Handoff Completed per policy Notes Mental Status: alert / awake / arousable and participated in evaluation Patient Amnestic to Procedure: Yes Nausea / Vomiting: adequately controlled Pain: adequately controlled Airway Patency, RR, SpO2: stable & adequate BP & HR: stable & adequate Hydration State: stable & adequate Neuraxial Anesthesia: was administered and sensory block is resolving Anesthetic Complications: no major complications apparent
[2019-05-29] MEDS: ACETAMINOPHEN 500 MG TAB PO SCH ×2 (16:20→21:14)
[2019-05-29] MEDS: ASCORBIC ACID 500 MG TAB PO SCH (16:22)
[2019-05-29] MEDS: FERROUS GLUCONATE 324 MG TAB PO SCH (16:22)
[2019-05-29] MEDS: KETOROLAC TROMETHAMINE 15 MG/ML VIAL IV SCH ×2 (16:23→21:14)
--- NOTE | 2019-05-29 17:34 | Progress Note ---
DATE: 05/29/2019 SUBJECTIVE: A 78-year-old white female postop from a right knee replacement. She is doing well. Not having any pain yet. No chest pain or shortness of breath. Not feeling dizzy or lightheaded. OBJECTIVE: VITAL SIGNS: Temperature is 36.4. Vital signs stable. GENERAL: Pleasant elderly female. She is sitting up in bed, looks quite comfortable. LUNGS: Clear to auscultation. HEART: Has a regular rate and rhythm. ABDOMEN: Soft, nontender, nondistended. EXTREMITIES: Grossly neurovascularly intact except as follows: Examination of the right lower extremity reveals the dressing to be clean, dry and intact. She can dorsiflex and plantarflex her foot appropriately. She can do a good straight leg raise. She is neurologically intact. X-RAYS: X-rays of the right knee from recovery room reviewed. It shows a right cemented posterior stabilized total knee arthroplasty. It is a fairly rotated film. Components looked to be in acceptable position. There are no obvious problems. ASSESSMENT: A 78-year-old white female postop from right knee replacement, doing well. Pain is controlled. She is neurologically intact. PLAN: 1. DVT prophylaxis including thigh-high TEDs, SCDs, and we will start her on Eliquis 24 hours postop. We will put her on a prophylactic dose initially and convert to a therapeutic dose in 2-3 days. 2. PT/OT. Weight bear as tolerated. Right total knee protocol. 3. Pain control, doing well with current pain regimen. 4. IV antibiotics x24 hours. 5. Disposition: Plan to discharge to home with some home health and family assistance once medically stable and recovered.
[2019-05-29] MEDS: CEFAZOLIN 2000MG 2,000 MG/15 ML SYR IV SCH (20:05)
[2019-05-29] MEDS: SENNA 8.6 MG TAB PO SCH (20:06)
[2019-05-29] MEDS: DOCUSATE SODIUM 100 MG CAP PO SCH (20:07)
[2019-05-29] MEDS: SIMVASTATIN 20 MG TAB PO SCH (20:08)
[2019-05-29] MEDS: CALCIUM 600MG + VIT D 400 IU TAB PO SCH (20:08)
[2019-05-29] MEDS: CEROVITE ADV FORMULA TAB PO SCH (20:08)
[2019-05-29] MEDS: CHOLECALCIFEROL 1,000 UNITS TAB PO SCH (20:09)
[2019-05-30] MEDS: KETOROLAC TROMETHAMINE 15 MG/ML VIAL IV SCH ×2 (03:18→09:09)
[2019-05-30] MEDS: CEFAZOLIN 2000MG 2,000 MG/15 ML SYR IV SCH (03:18)
[2019-05-30] MEDS: ACETAMINOPHEN 500 MG TAB PO SCH ×3 (05:07→21:12)
[2019-05-30 05:47] LABS: Hematocrit (blood only) 34.4 % (37-47); Mean Corpuscular Hemoglobin 30.6 pg (25-34); Mean Corpuscular Volume 95.8 fL (80-100); Platelet Count 164 K/uL (130-400); RDW Coefficient of Variation 13.9 % (11.5-14.5); RDW Standard Deviation 48.9 fL (36.4-46.3); Red Blood Count 3.59 M/uL (4.2-5.4); White Blood Count 7.99 K/uL (4.8-10.8)
[2019-05-30 06:17] LABS: BUN Creatinine Ratio 20.3 (10-20); Calcium 8.4 mg/dl (8.5-10.1); Creatinine Clr Calc Pharmacy 38.6 ml/min; Est GFR (African American) 45.2; Potassium 4.3 mmol/L (3.5-5.1)
[2019-05-30] MEDS: TRAMADOL HCL 50 MG TABLET PO PRN ×2 (07:30→17:39)
[2019-05-30] MEDS ORDERED: MULTIVITAMIN TAB PO SCH (09:00)
[2019-05-30] MEDS: CALCIUM 600MG + VIT D 400 IU TAB PO SCH ×2 (09:03→20:28)
[2019-05-30] MEDS: DOCUSATE SODIUM 100 MG CAP PO SCH ×2 (09:03→20:28)
[2019-05-30] MEDS: CEROVITE ADV FORMULA TAB PO SCH ×2 (09:04→20:28)
[2019-05-30] MEDS: PANTOprazole 40 MG TAB PO SCH (09:04)
[2019-05-30] MEDS: FERROUS GLUCONATE 324 MG TAB PO SCH ×2 (09:04→17:39)
[2019-05-30] MEDS: TELMISARTAN 20 MG TAB PO SCH (09:04)
[2019-05-30] MEDS: CHOLECALCIFEROL 1,000 UNITS TAB PO SCH ×2 (09:04→20:28)
[2019-05-30] MEDS: hydroCHLOROthiazide 25 MG TAB PO SCH (09:04)
[2019-05-30] MEDS: ASCORBIC ACID 500 MG TAB PO SCH ×2 (09:04→17:39)
[2019-05-30] MEDS: METOPROLOL SUCC 50MG EXT REL TAB PO SCH (09:05)
--- NOTE | 2019-05-30 10:02 | Progress Note ---
DATE: 05/30/2019 SUBJECTIVE: A 78-year-old white female postop day #1 from a right knee replacement. She is doing pretty well. Having some pain, but did pretty well with the tramadol. No chest pain or shortness of breath. Not feeling dizzy or lightheaded. OBJECTIVE: VITAL SIGNS: Temperature 36.8. Vital signs stable. GENERAL: Today shows a pleasant elderly female. She is sitting up in bed, looks pretty comfortable this morning. EXTREMITIES: Examination of the right leg reveals the leg to be well aligned. Dressing is clean, dry and intact. She can dorsiflex and plantarflex her foot appropriately. She is neurologically intact. LABORATORY DATA: Hemoglobin is 11.0. Hematocrit 34.4. Electrolytes are fairly stable. Creatinine just slightly elevated at 1.30. ASSESSMENT: A 78-year-old white female postop day #1 from right knee replacement, doing pretty well. Pain has been pretty well controlled with the pain regimen including tramadol. She is neurologically intact. Creatinine slightly elevated. We will encourage oral intake and follow this along. PLAN: 1. DVT prophylaxis including thigh-high TEDs, SCDs, and will put her back on her Eliquis at a prophylactic dose today. 2. PT/OT. Weight bear as tolerated. Right total knee protocol. 3. Pain control, doing okay with current pain regimen. We are going to stick with Tylenol and tramadol. She cannot take NSAIDs due to her Eliquis use. 4. Elevated creatinine. We will hold all further NSAID at this point. She did have some Toradol postoperatively for 24 hours. We will stop that. We will follow her creatinine. 5. Disposition: Plan to discharge to home with some home health once adequately recovered and medically stable.
[2019-05-30] MEDS: APIXABAN 2.5 MG TAB PO SCH (20:28)
[2019-05-30] MEDS: SIMVASTATIN 20 MG TAB PO SCH (20:28)
[2019-05-30] MEDS: SENNA 8.6 MG TAB PO SCH (20:28)
[2019-05-30] MEDS: ONDANSETRON INJ 2 MG/ML 2 ML VIAL IV PRN (23:29)
[2019-05-31] MEDS: TRAMADOL HCL 50 MG TABLET PO PRN (04:16)
[2019-05-31] MEDS: ACETAMINOPHEN 500 MG TAB PO SCH (05:04)
[2019-05-31 06:08] LABS: BUN Creatinine Ratio 19.7 (10-20); Calcium 8.8 mg/dl (8.5-10.1); Creatinine Clr Calc Pharmacy 53.9 ml/min; Est GFR (African American) 67.7; Est GFR (Non-African American) 58.5; Potassium 3.8 mmol/L (3.5-5.1)
[2019-05-31] MEDS: ONDANSETRON INJ 2 MG/ML 2 ML VIAL IV PRN (07:57)
[2019-05-31] MEDS: ASCORBIC ACID 500 MG TAB PO SCH (08:31)
[2019-05-31] MEDS: DOCUSATE SODIUM 100 MG CAP PO SCH (08:31)
[2019-05-31] MEDS: FERROUS GLUCONATE 324 MG TAB PO SCH (08:31)
[2019-05-31] MEDS: APIXABAN 2.5 MG TAB PO SCH (08:31)
[2019-05-31] MEDS: CALCIUM 600MG + VIT D 400 IU TAB PO SCH (08:31)
[2019-05-31] MEDS: hydroCHLOROthiazide 25 MG TAB PO SCH (08:32)
[2019-05-31] MEDS: PANTOprazole 40 MG TAB PO SCH (08:32)
[2019-05-31] MEDS: METOPROLOL SUCC 50MG EXT REL TAB PO SCH (08:32)
[2019-05-31] MEDS: CHOLECALCIFEROL 1,000 UNITS TAB PO SCH (08:32)
[2019-05-31] MEDS: TELMISARTAN 20 MG TAB PO SCH (08:32)
[2019-05-31] MEDS: CEROVITE ADV FORMULA TAB PO SCH (08:32)
--- NOTE | 2019-05-31 08:42 | Progress Note ---
DATE: 05/31/2019 SUBJECTIVE: A 78-year-old white female postop day #2 from right knee replacement. She is doing pretty well. Pain is controlled. She has a little nausea with the tramadol. Takes Zofran that seemed to help. No chest pain or shortness of breath. Not feeling dizzy or lightheaded. OBJECTIVE: VITAL SIGNS: Temperature is 36.8. Vital signs stable. GENERAL: Reveals a pleasant elderly female. She is sitting up in her bedside chair and looks completely comfortable. EXTREMITIES: Examination of the right leg reveals the dressing to be just a little bit of blood drainage. Her calf is soft and supple. Not much swelling. She is neurologically intact. LABORATORY DATA: Her creatinine is improved at 0.93. ASSESSMENT: A 78-year-old white female postop day #2 from right knee replacement, doing pretty well. Pain is controlled. Little nausea with the pain medicine, but does okay with Zofran. Her creatinine is improved. She had a little trouble voiding initially but doing better now. PLAN: 1. DVT prophylaxis including thigh-high TEDs, SCDs, and back on Eliquis. She will be discharged on her home dose. 2. PT/OT. Weight bear as tolerated. Right total knee protocol. 3. Pain control, doing pretty well with current pain regimen. We will stick with Tylenol and limited tramadol and I will write her for some Zofran for nausea. 4. Disposition. We will plan to discharge to home with some home health likely later today.
--- NOTE | 2019-06-03 11:34 | Discharge Summary ---
DATE OF ADMISSION: 05/29/2019 DATE OF DISCHARGE: 05/31/2019 ADMITTING PHYSICIAN AND SURGEON: Dr. Regan Garcia. ADMITTING DIAGNOSIS: Right knee degenerative joint disease. SURGERY PERFORMED: Right total knee arthroplasty. SECONDARY DIAGNOSES: Hypertension, elevated cholesterol, history of atrial fibrillation spine arthritis, gastroesophageal reflux disease, mild obesity. CONSULTS: None obtained. HISTORY AND PHYSICAL EXAMINATION: Well documented in the patient's chart. HOSPITAL COURSE: The patient was admitted on 05/29/2019, underwent total knee arthroplasty, tolerated the procedure well. There were no complications. She was transferred to the PACU postoperatively and later to the orthopedic floor for further care. She was given Ancef for antibiotic prophylaxis, DENITA stockings, SCDs and Eliquis for DVT prophylaxis. Hemoglobin, hematocrit and vital signs were monitored during her hospital stay and remained stable. She did not require any blood transfusions. There were no complications. On postoperative day #2, she was tolerating a regular diet, pain was controlled with oral pain medicine. She was participating in physical therapy. Postop day #2, she was discharged home, set up with home health services. She was given printed discharge instructions as well as new prescriptions for extra strength Tylenol, Zofran and tramadol. Continue her home medications, continue physical therapy, weightbearing as tolerated, DENITA stockings. Follow up approximately 2 weeks postoperatively or sooner if there are any problems or concerns.
== END 2019-05-31 10:18 | disposition home health service (06) | DRG 470 ==
LOC: ASU 08:07 → 3E 12:40

== ENCOUNTER 2023-06-27 14:40 | Observation (INO) ==
[2023-06-27 15:16] LABS: Basophils # (auto) 0.05 K/uL (0.00-0.20); Basophils % (auto) 0.5 %; Eosinophils # (auto) 0.26 K/uL (0.00-0.50); Eosinophils % (auto) 2.7 %; Hematocrit (blood only) 36.4 % (37.0-47.0); Hemoglobin 11.5 g/dl (12.0-16.0); Immature Granulocytes # (auto) 0.03 K/uL (0.01-0.20); Immature Granulocytes % (auto) 0.3 %; Lymphocytes # (auto) 2.07 K/uL (1.20-3.40); Lymphocytes % (auto) 21.3 %; Mean Corpuscular Hemoglobin 31.3 pg (25.0-34.0); Mean Corpuscular Hgb Conc 31.6 g/dL (32.0-36.0); Mean Corpuscular Volume 98.9 fL (80.0-100.0); Mean Platelet Volume 10.1 fL (9.4-12.4); Monocytes # (auto) 0.69 K/uL (0.11-0.59); Monocytes % (auto) 7.1 %; Neutrophils # (auto) 6.62 K/uL (1.40-6.50); Neutrophils % (auto) 68.1 %; Platelet Count 224 K/uL (130-400); RDW Coefficient of Variation 14.7 % (11.5-14.5); RDW Standard Deviation 52.8 fL (36.4-46.3); Red Blood Count 3.68 M/uL (4.20-5.40); White Blood Count 9.72 K/ul (4.8-10.8)
[2023-06-27 15:28] LABS: Alanine Aminotransferase 13 U/L (7-52); Albumin Globulin Ratio 1.4 (0.9-2); Alkaline Phosphatase 77 U/L (34-104); Anion Gap 7 (3-11); Aspartate Aminotransferase 22 U/L (13-39); BUN Creatinine Ratio 21.4 (10-20); Bilirubin,Total 0.7 mg/dl (0.2-1.0); Blood Urea Nitrogen 22 mg/dl (6-23); Calcium 9.5 mg/dl (8.6-10.3); Carbon Dioxide 28 mmol/L (21-32); Chloride 104 mmol/L (98-107); Est GFR (African American) 58.2 ml/min; Est GFR (Non-African American) 50.2 ml/min; Globulin 2.8 gm/dl (2.5-4.0); Glucose 156 mg/dl (70-99(Fasting)); Lipase 41 U/L (11-82); Potassium 3.5 mmol/L (3.5-5.1); Sodium 139 mmol/L (136-145); Total Protein 6.8 gm/dl (6.0-8.3)
[2023-06-27 15:34] LABS: Troponin I High Sensitivity 14.8 pg/ml (0-14)
--- NOTE | 2023-06-27 15:35 | XRay Report ---
XR chest 1V portable CLINICAL HISTORY: Chest pain, nonspecific TECHNIQUE: Single frontal radiograph of the chest was obtained. Comparison: Comparison is made to chest radiograph 06/01/2019 FINDINGS: No lines and tubes are seen. Cardiomegaly is noted. The aortic arch is calcified. 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 Reticular interstitial opacities are seen. No evidence of pleural effusion or pneumothorax. IMPRESSION: No acute chest disease. Cardiomegaly is noted. ACT 112: Negative or not required by law. Electronically signed by: Mk Amaya M.D. 06/27/2023 3:33 PM
[2023-06-27 15:38] LABS: INR 1.2 (0.9-1.1); Partial Thromboplastin Ratio 1.1; Partial Thromboplastin Time 30.2 Seconds (21.0-31.0); Prothrombin Time 12.9 Seconds (9.0-12.0)
--- NOTE | 2023-06-27 16:49 | Electrocardiogram Report ---
Test Reason : Blood Pressure : / mmHG Vent. Rate : 084 BPM Atrial Rate : 000 BPM P-R Int : 000 ms QRS Dur : 078 ms QT Int : 380 ms P-R-T Axes : 000 -29 030 degrees QTc Int : 449 ms Atrial fibrillation Abnormal ECG When compared with ECG of 16-MAR-2023 09:36, No significant change was found Confirmed by Warren Paulino ([id number] on 06/27/2023 4:48:55 PM Referred By: Confirmed By:Warren Paulino
[2023-06-27] MEDS ORDERED: FUROSEMIDE 40 MG/4 ML VIAL IV ONE (19:04)
--- NOTE | 2023-06-27 19:14 | Emergency Department Note ---
Impression & Plan SOB (shortness of breath), Exertional dyspnea, CHF (congestive heart failure), Precordial chest pain ED Provider Note NAME: UCHE HUTSON AGE: 82 SEX: F : 1940 ARRIVES VIA: Walk-In INFORMANT: [Patient] ED PROVIDER(S): [Martin Camilo MD] CHIEF COMPLAINT: Shortness of breath, chest pain HISTORY OF PRESENT ILLNESS: The patient is an 82-year-old female who presents to the ER with 3 weeks of increasing dyspnea with exertion and chest pain with exertion. Things have worsened to the point where she can only take a few steps. She feels some left jaw pain and left arm pain with this happens, her blood pressure spikes and her heart rate increases. She has to rest to feel better. The patient has a history of aortic valve replacement as well as A-fib. She is on Eliquis. There has been no cough or congestion or fever. No abdominal pain or vomiting. She has noticed some increasing leg edema at times depending on what she eats. PMHx/PSHx/Social Hx: See Below PHYSICAL EXAM: GENERAL: Patient is in no acute distress. HEENT: No acute trauma, normocephalic atraumatic, mucous membranes moist, no nasal congestion. NECK: No stridor, no adenopathy, no meningismus, trachea is midline. LUNGS: A few scattered crackles heard, no respiratory distress, breath sounds equal. HEART: Very subtle systolic murmur, irregular rhythm, normal rate. ABDOMEN: Soft, nontender, no peritonitis. EXTREMITIES: No cyanosis, full range of motion of all the joints without pain or difficulty. Moderate bilateral pedal edema. NEUROLOGIC: Oriented x 3, no acute motor or sensory deficits, no focal weakness. SKIN: No jaundice, no diaphoresis. DIFFERENTIAL DIAGNOSIS: Cardiac ischemia, [place], CHF, pneumonia, aortic valve malfunction, anemia, electrolyte imbalance, among others. EMERGENCY DEPARTMENT PROCEDURES: MEDICAL DECISION MAKING: There is no leukocytosis. A mild anemia was seen. There was a normal platelet count. INR was slightly elevated at 1.2. No renal failure or significant electrolyte abnormality. ECG shows atrial fibrillation, no obvious ischemia. Cardiac enzyme testing x1 is slightly elevated. This elevation could be secondary to cardiac injury or potentially just mismatch. Looking back at previous testing, she has had a mild troponin elevation recently documented. No concerning liver enzyme elevation, no pancreatitis. Chest x-ray does show some chronic change as well as some mild CHF. BNP is elevated consistent with fluid overload. Patient received IV Lasix, 40 mg. The patient presents with exertional dyspnea and exertional chest pain. She appears to be in some mild CHF. I do think further cardiac work-up is warranted, she may require further diuresis. I spoke with the patient and case management, the on-call hospitalist was consulted. Prior/Outside records/notes reviewed: Pain management note from 05/29/2023 discussing her lower back issues and pain. ECG per my interpretation: Indication was shortness of breath. The ECG shows atrial fibrillation with a rate of 84. There is no ST elevation, no PVCs. The QTc is 449. Continuous Cardiac Monitoring per my interpretation: An order was placed for continuous cardiac monitoring. The monitor shows a rate of 80 with atrial fibrillation. Imaging/x-ray results per my interpretation: Chest x-ray does not show pneumonia but does appear to show some fluid overload/CHF Chronic Medical/Social conditions affecting care: Chronic anticoagulation, atrial fibrillation. Care/Management discussed with: Case management and the on-call hospitalist. Level of care consideration(s): After review of the information above and other included data: --I believe the patient requires escalation of care to admission DISPOSITION: Admission Past Med/Surg History Medical History SUTTON (dyspnea on exertion) Lumbosacral facet joint syndrome Chronic low back pain Severe aortic stenosis by prior echocardiogram Left rotator cuff tear LUQ abdominal pain LLQ abdominal pain Encounter for pre-operative examination PONV (postoperative nausea and vomiting) RLS (restless legs syndrome) GERD (gastroesophageal reflux disease) Aortic valve stenosis SOB (shortness of breath) on exertion recently noted sob with walking -- scheduled for stress test 11/21 @ [place] Atrial fibrillation dx 2 years ago, on Eliquis -- follows with Dr. Ramirez Chest pressure Trigger finger Spinal stenosis Hx of basal cell carcinoma forehead Cataract BL Macular degeneration BL Diverticular disease Irritable bowel syndrome with diarrhea Insomnia Carpal tunnel syndrome Aortic stenosis Moderate aortic stenosis (BERNICE 1.0cm2, MG 13.2mmhg) Anemia Osteoarthritis Diverticulitis Surgical History History of bilateral knee replacement History of carpal tunnel release LEFT History of colonoscopy History of appendectomy History of tooth extraction History of tonsillectomy History of adenoidectomy History of tubal ligation History of cholecystectomy Family History Mother Family history of diabetes mellitus Mother Family history of diabetes mellitus Myocardial infarction Other No family history of adverse response to anesthesia Denies family history of Ovarian cancer Prostate cancer Breast cancer Colorectal cancer Social History Smoking Status: Never smoker Tobacco Type: Cigarettes Age Started Using Tobacco: 17; Age Quit Using Tobacco: 29; packs per day: 0.25; Cigarettes Per Day: QUIT OVER 50 YEARS AGO; Second Hand Exposure: Yes (as a child); Do You Dip or Chew Tobacco: No; Hx Alcohol Use: Yes Alcohol type: wine Alcohol Intake Frequency: 2-3 x/Week Hx Substance Use: No Preferred Language: Amharic Communication Ability: Effective Visual Impairment: No Limitations Hearing Ability: Normal Nurse Liaison Required: No Beliefs That Will Affect Care: None marital status: / Current Living Situation: Alone Current Living Situation Comment: [facility] current occupational status: retired Feels Safe at Home: Yes Childhood Exposure to Second-Hand Smoke: Yes Diet: regular Dental Care, Regularly: Yes Physical Activity Frequency: 1-2 Times per Week Seatbelt Use: always Sunscreen Use: Yes Assistive Devices: Glasses Allergies Allergies Allergy/AdvReac Type Severity Reaction Status Date / Time No Known Allergies Allergy Verified 06/27/23 18:39 Home Meds Home Medications Medication Instructions Recorded Confirmed [id number] 5 mg-zeaxanth 2 cap PO BID 05/10/22 06/27/23 1 mg-bilberry 7.5 mg-herbal capsule (Macular Health Formula) amoxicillin 500 mg tablet 2,000 mg PO DIRECTED PRN 1 HR 06/27/23 06/27/23 PRIOR TO PROCEDURES apixaban 5 mg tablet (Eliquis) 5 mg PO BID 06/27/23 06/27/23 cholecalciferol (vitamin D3) 50 50 mcg PO DAILY 06/27/23 06/27/23 mcg (2,000 unit) capsule (Vitamin D3) gabapentin 100 mg capsule 200 mg PO QPM PRN RESTLESS LEG 06/27/23 06/27/23 SYNDROME lorazepam 0.5 mg tablet 0.25 mg PO DAILY PRN anxiety 06/27/23 06/27/23 metoprolol succinate 100 mg 100 mg PO HS 06/27/23 06/27/23 tablet,extended release 24 hr rosuvastatin 20 mg tablet 20 mg PO HS 06/27/23 06/27/23 Previous Rx's Medication Instructions Recorded Wheeled Walker #1 ea 11/02/21 hydrochlorothiazide 12.5 mg tablet 12.5 mg PO QAM #90 tabs 01/08/23 telmisartan 20 mg tablet 20 mg PO QAM #90 tabs 01/08/23 ondansetron 4 mg disintegrating 4 - 8 mg (1 - 2 x 4 mg) PO Q8H PRN 03/16/23 tablet nausea and vomiting #14 tabs Results & Data (ED) Vital Signs Vital Signs - 24 hr 06/27/23 14:48 06/27/23 17:35 06/27/23 17:35 Temperature 36.9 C Temperature Source Temporal Artery Scan Pulse Rate 80 Pulse Rate [Apical] Pulse Rhythm [Apical] Pulse Strength [Apical] Respiratory Rate 18 Respiratory Effort / Characteristics Non-Labored Spontaneous SOB on Exertion Respiratory Depth Normal Normal Respiratory Pattern Regular Blood Pressure 141/75 H Blood Pressure [Left Arm] Blood Pressure Mean 97 Blood Pressure Mean [Left Arm] Pulse Oximetry 96 96 Oxygen Delivery Method Room Air Room Air Room Air Sepsis Recent Fever Within 48 Hours No Sepsis New/Unexplained Change in Mental Status No Sepsis Action Taken by Nursing No Action Required 06/27/23 17:35 06/27/23 17:41 06/27/23 19:50 Temperature Temperature Source Pulse Rate 87 Pulse Rate [Apical] 93 H 95 H Pulse Rhythm [Apical] Regular Regular Pulse Strength [Apical] Normal Normal Respiratory Rate 19 19 Respiratory Effort / Characteristics SOB on Exertion SOB on Exertion Respiratory Depth Normal Normal Respiratory Pattern Regular Blood Pressure Blood Pressure [Left Arm] 161/95 H 158/103 H Blood Pressure Mean Blood Pressure Mean [Left Arm] 117 121 Pulse Oximetry 96 93 Oxygen Delivery Method Room Air Room Air Sepsis Recent Fever Within 48 Hours Sepsis New/Unexplained Change in Mental Status Sepsis Action Taken by Residential Medications Current Medication List: was personally reviewed by me Laboratory Data Attestation: I reviewed the patient's lab results. 06/27/23 15:00 06/27/23 15:00 Lab Results 06/27/23 Range/Units 15:00 WBC 9.72 (4.8-10.8) K/ul RBC 3.68 L (4.20-5.40) M/uL Hgb 11.5 L (12.0-16.0) g/dl Hct 36.4 L (37.0-47.0) % MCV 98.9 (80.0-100.0) fL MCH 31.3 (25.0-34.0) pg MCHC 31.6 L (32.0-36.0) g/dL RDW Std Deviation 52.8 H (36.4-46.3) fL RDW Coeff of Leida 14.7 H (11.5-14.5) % Plt Count 224 (130-400) K/uL MPV 10.1 (9.4-12.4) fL Immature Gran % (Auto) 0.3 % Neut % (Auto) 68.1 % Lymph % (Auto) 21.3 % [place] % (Auto) 7.1 % Eos % (Auto) 2.7 % Baso % (Auto) 0.5 % Neut # (Auto) 6.62 H (1.40-6.50) K/uL Lymph # (Auto) 2.07 (1.20-3.40) K/uL [place] # (Auto) 0.69 H (0.11-0.59) K/uL Eos # (Auto) 0.26 (0.00-0.50) K/uL Baso # (Auto) 0.05 (0.00-0.20) K/uL Immature Gran # (Auto) 0.03 (0.01-0.20) K/uL PT 12.9 H (9.0-12.0) Seconds INR 1.2 H (0.9-1.1) APTT 30.2 (21.0-31.0) Seconds PTT Ratio 1.1 Sodium 139 (136-145) mmol/L Potassium 3.5 (3.5-5.1) mmol/L Chloride 104 (98-107) mmol/L Carbon Dioxide 28 (21-32) mmol/L Anion Gap 7 (3-11) BUN 22 (6-23) mg/dl Creatinine 1.03 (0.6-1.2) mg/dl Est Cr Clr Drug Dosing Not Reportable Est GFR ( Amer) 58.2 ml/min Est GFR (Non-Af Amer) 50.2 ml/min BUN/Creatinine Ratio 21.4 H (10-20) Glucose 156 H (70-99(Fasting)) mg/dl Calcium 9.5 (8.6-10.3) mg/dl Total Bilirubin 0.7 (0.2-1.0) mg/dl AST 22 (13-39) U/L ALT 13 (7-52) U/L Alkaline Phosphatase 77 (34-104) U/L Troponin I High Sens 14.8 H (0-14) pg/ml B-Natriuretic Peptide 316 H (0-100) pg/ml Total Protein 6.8 (6.0-8.3) gm/dl Albumin 4.0 (3.4-5.0) gm/dl Globulin 2.8 (2.5-4.0) gm/dl Albumin/Globulin Ratio 1.4 (0.9-2) Lipase 41 (11-82) U/L Administered Medications Discontinued Medications Apixaban (Apixaban 5 Mg Tablet) 5 mg PO NOW STA Stop: 06/27/23 22:23 Last Admin: 06/27/23 22:56 Dose: 5 mg Documented By: CHOLO Furosemide (Furosemide 40 Mg/4 Ml Vial) 40 mg IV ONE ONE Stop: 06/27/23 19:05 Last Admin: 06/27/23 19:26 Dose: 40 mg Documented By: CHOLO Metoprolol Succinate (Metoprolol Succ 50mg Ext Rel Tab) 100 mg PO NOW STA Stop: 06/27/23 22:23 Last Admin: 06/27/23 22:56 Dose: 100 mg Documented By: CHOLO Rosuvastatin Calcium (Rosuvastatin Calcium 20 Mg Tab) 20 mg PO NOW STA Stop: 06/27/23 22:23 Last Admin: 06/27/23 22:56 Dose: 20 mg Documented By: CHOLO Imaging Data Radiologist's Impression: Chest X-Ray 06/27/23 14:53 XR chest 1V portable CLINICAL HISTORY: Chest pain, nonspecific TECHNIQUE: Single frontal radiograph of the chest was obtained. Comparison: Comparison is made to chest radiograph 06/01/2019 FINDINGS: No lines and tubes are seen. Cardiomegaly is noted. The aortic arch is calcified. Ascending aorta valve prosthesis is seen. Reticular interstitial opacities are seen. No evidence of pleural effusion or pneumothorax. IMPRESSION: No acute chest disease. Cardiomegaly is noted. ACT 112: Negative or not required by law. Electronically signed by: Mk Amaya M.D. 06/27/2023 3:33 PM Discharge Plan Visit Data Chief Complaint: Shortness of Breath/Dyspnea Stated Complaint: CHEST PAIN, LT ARM PAIN, SOB ED Provider: Martin Camilo Discharge Problem: SOB (shortness of breath), Exertional dyspnea, CHF (congestive heart failure), Precordial chest pain Patient Disposition: Admitted As Inpatient Condition: Fair Discharge Instructions Interventions: ED Discharge Assessment Last Done: 06/27/23 23:26 Discharge Problem: CHF (congestive heart failure) Qualifiers: Heart failure type: unspecified Heart failure chronicity: acute Qualified Code(s): I50.9 - Heart failure, unspecified
--- NOTE | 2023-06-27 19:56 | History & Physical Report ---
Date of Service June 27, 2023 Assessment & Plan (1) SUTTON (dyspnea on exertion): Plan: 82yo female with history of atrial fibrillation on Eliquis anticoagulation, aortic stenosis s/p TAVR September 2022 presenting with progressive SUTTON, decreased exercise tolerance and edema. Last echo from 09/14/22 with normal LV size and function with no regional WMA. EF of 60-65%, biatrial enlargement. TAVR in place - well seated with appropriate gradients. Labs as above with mild elevation of troponin at 14.8 and BNP at 316. CXR with cardiomegaly - does appear to have some pulmonary venous congestion by my interpretation, although not read as such by radiology. Suspect CHF, volume overload contributing to patient's presenting symptoms. -Admit to medical with telemetry -Monitor response to Lasix administered in the ER -Continue diuresis with Lasix 40mg IV daily -I/Os and daily weights -Trend troponin to peak -Check 2D echo (2) Paroxysmal atrial fibrillation: Plan: Chronic. Rate controlled. Patient anticoagulated on Apixaban 5mg po BID. She reports compliance with her mediations - no missed doses -Continue Apixaban 5mg po BID. Order placed for patient to receive her evening dose now -Continue Metoprolol - order placed for her to receive this medication now (3) Hypertension: Plan: Chronic. Stable -Continue Telmisartan -Hold HCTZ for now -Continue to monitor (4) Dyslipidemia: Plan: Chronic. Stable -Continue Crestor 20mg po daily F/E/N - diuresis as above, monitor electrolytes and renal function with daily BMP, low Na diet as tolerated Ppx - Continue home Eliquis Code - DNR/DNI per discussion with patient Dispo - Admit to medical with telemetry History of Present Illness Chief Complaint: dyspnea on exertion Primary Care Provider: Sanchez Ivy MD Vicki Ricks is a pleasant 82yo female with history of atrial fibrillation, HTN, HLP and aortic stenosis s/p TAVR on 09/13/2022 at [facility] presenting with progressive dyspnea. Patient reports that over the last several months she has noticed progressive dyspnea on exertion as well as decreased exercise tolerance. Her symptoms have been acutely worse over the last 2-3 weeks. She becomes short of breath with ambulating short distances such as 15-20 feet across her home. Today she had an episode of tightness in her left arm and an achy feeling in her jaw. She called the office of her primary meter reading clerk (Dr. Ramirez) today and was instructed to come to the ER for further evaluation. She also reports bilateral LE edema, cry cough and occasional chest tightness/pressure that occurs with exertion. She does not closely monitor her weight and does not note any marked increase. She has occasional nausea in the morning. Additionally she denies fever, chills, any new or concerning abdominal pain, vomiting or diarrhea In the ER patient is afebrile, HD stable, NAD ER Course: Lasix 40mg IV - 19:26 Allergies Allergy/AdvReac Type Severity Reaction Status Date / Time No Known Allergies Allergy Verified 06/27/23 18:39 Home Medications Medication Instructions Recorded Confirmed Type Wheeled Walker #1 ea 11/02/21 05/16/23 Rx kodkoode-zrv-[id number] 5 mg-zeaxanth 2 cap PO BID 05/10/22 06/27/23 History 1 mg-bilberry 7.5 mg-herbal capsule ([employer] Formula) hydrochlorothiazide 12.5 mg tablet 12.5 mg PO QAM #90 tabs 01/08/23 06/27/23 Rx telmisartan 20 mg tablet 20 mg PO QAM #90 tabs 01/08/23 06/27/23 Rx ondansetron 4 mg disintegrating 4 - 8 mg (1 - 2 x 4 mg) PO Q8H PRN 03/16/23 06/27/23 Rx tablet nausea and vomiting #14 tabs amoxicillin 500 mg tablet 2,000 mg PO DIRECTED PRN 1 HR 06/27/23 06/27/23 History PRIOR TO PROCEDURES apixaban 5 mg tablet (Eliquis) 5 mg PO BID 06/27/23 06/27/23 History cholecalciferol (vitamin D3) 50 50 mcg PO DAILY 06/27/23 06/27/23 History mcg (2,000 unit) capsule (Vitamin D3) gabapentin 100 mg capsule 200 mg PO QPM PRN RESTLESS LEG 06/27/23 06/27/23 History SYNDROME lorazepam 0.5 mg tablet 0.25 mg PO DAILY PRN anxiety 06/27/23 06/27/23 History metoprolol succinate 100 mg 100 mg PO HS 06/27/23 06/27/23 History tablet,extended release 24 hr rosuvastatin 20 mg tablet 20 mg PO HS 06/27/23 06/27/23 History Past Med/Surg History Medical History (Updated 06/27/23 @ 22:21 by Nola Garcia DO) SUTTON (dyspnea on exertion) Lumbosacral facet joint syndrome Chronic low back pain Severe aortic stenosis by prior echocardiogram Left rotator cuff tear LUQ abdominal pain LLQ abdominal pain Encounter for pre-operative examination PONV (postoperative nausea and vomiting) RLS (restless legs syndrome) GERD (gastroesophageal reflux disease) Aortic valve stenosis SOB (shortness of breath) on exertion recently noted sob with walking -- scheduled for stress test 11/21 @ [place] Atrial fibrillation dx 2 years ago, on Eliquis -- follows with Dr. Ramirez Chest pressure Trigger finger Spinal stenosis Hx of basal cell carcinoma forehead Cataract BL Macular degeneration BL Diverticular disease Irritable bowel syndrome with diarrhea Insomnia Carpal tunnel syndrome Aortic stenosis Moderate aortic stenosis (BERNICE 1.0cm2, MG 13.2mmhg) Anemia Osteoarthritis Diverticulitis Surgical History History of bilateral knee replacement History of carpal tunnel release LEFT History of colonoscopy History of appendectomy History of tooth extraction History of tonsillectomy History of adenoidectomy History of tubal ligation History of cholecystectomy Family History Mother Family history of diabetes mellitus Mother Family history of diabetes mellitus Myocardial infarction Other No family history of adverse response to anesthesia Denies family history of Ovarian cancer Prostate cancer Breast cancer Colorectal cancer Social History Smoking Status: Never smoker Tobacco Type: Cigarettes Age Started Using Tobacco: 17; Age Quit Using Tobacco: 29; packs per day: 0.25; Cigarettes Per Day: QUIT OVER 50 YEARS AGO; Second Hand Exposure: Yes (as a child); Do You Dip or Chew Tobacco: No; Hx Alcohol Use: Yes Alcohol type: wine Alcohol Intake Frequency: 2-3 x/Week Hx Substance Use: No Preferred Language: Macanese Communication Ability: Effective Visual Impairment: No Limitations Hearing Ability: Normal Pasteurizer Required: No Beliefs That Will Affect Care: None marital status: / Current Living Situation: Alone Current Living Situation Comment: [facility] current occupational status: retired Feels Safe at Home: Yes Childhood Exposure to Second-Hand Smoke: Yes Diet: regular Dental Care, Regularly: Yes Physical Activity Frequency: 1-2 Times per Week Seatbelt Use: always Sunscreen Use: Yes Assistive Devices: Glasses Review of Systems Review of Systems: All systems reviewed & are unremarkable except as noted in HPI & below Physical Exam Physical Exam: General: patient resting comfortably, NAD, non-toxic in appearance, AA&O x 4 Skin: warm, dry, intact, no rashes or lesions HEENT: NC/AT, PERRL, EOMI, anicteric sclera, conjunctiva without injection, external ear normal to inspection and nontender, nares patent, moist mucus membranes, dentition intact, no oropharyngeal lesions, neck supple, trachea midline, no LAD, no thyromegaly, no JVD Heart: +S1/S2, irregularly irregular, no m/r/g Lungs: equal air entry bilaterally, end-inspiratory crackles to mid-lung field bilaterally, scattered wheezing Abd: +BS, soft, NT/ND, no masses/organomegaly/ascites Ext: warm, 2+ pulses in UE/LE bilaterally, no clubbing/cyanosis, 2+ edema of bilateral LE Neuro: nonfocal, patient AA&O x 4, speech intact, no facial droop, moving all extremities on command with equal strength 5/5 Results & Data Results & Data Vital Signs (Past 12 Hours) Vital Signs Temp Pulse Pulse Resp BP BP Pulse Ox 06/27/23 19:50 95 H 19 158/103 H 93 06/27/23 17:41 87 06/27/23 17:35 93 H 19 161/95 H 96 06/27/23 17:35 96 06/27/23 17:35 06/27/23 14:48 36.9 C 80 18 141/75 H 96 O2 Del Method 06/27/23 19:50 Room Air 06/27/23 17:41 06/27/23 17:35 Room Air 06/27/23 17:35 Room Air 06/27/23 17:35 Room Air 06/27/23 14:48 Room Air Laboratory Results Laboratory Results WBC 9.72 K/ul (4.8-10.8) 06/27/23 15:00 RBC 3.68 M/uL (4.20-5.40) L 06/27/23 15:00 Hgb 11.5 g/dl (12.0-16.0) L 06/27/23 15:00 Hct 36.4 % (37.0-47.0) L 06/27/23 15:00 MCV 98.9 fL (80.0-100.0) 06/27/23 15:00 MCH 31.3 pg (25.0-34.0) 06/27/23 15:00 MCHC 31.6 g/dL (32.0-36.0) L 06/27/23 15:00 RDW Std Deviation 52.8 fL (36.4-46.3) H 06/27/23 15:00 RDW Coeff of Leida 14.7 % (11.5-14.5) H 06/27/23 15:00 Plt Count 224 K/uL (130-400) 06/27/23 15:00 MPV 10.1 fL (9.4-12.4) 06/27/23 15:00 Immature Gran % (Auto) 0.3 % 06/27/23 15:00 Neut % (Auto) 68.1 % 06/27/23 15:00 Lymph % (Auto) 21.3 % 06/27/23 15:00 Evans % (Auto) 7.1 % 06/27/23 15:00 Eos % (Auto) 2.7 % 06/27/23 15:00 Baso % (Auto) 0.5 % 06/27/23 15:00 Neut # (Auto) 6.62 K/uL (1.40-6.50) H 06/27/23 15:00 Lymph # (Auto) 2.07 K/uL (1.20-3.40) 06/27/23 15:00 Evans # (Auto) 0.69 K/uL (0.11-0.59) H 06/27/23 15:00 Eos # (Auto) 0.26 K/uL (0.00-0.50) 06/27/23 15:00 Baso # (Auto) 0.05 K/uL (0.00-0.20) 06/27/23 15:00 Immature Gran # (Auto) 0.03 K/uL (0.01-0.20) 06/27/23 15:00 PT 12.9 Seconds (9.0-12.0) H 06/27/23 15:00 INR 1.2 (0.9-1.1) H 06/27/23 15:00 APTT 30.2 Seconds (21.0-31.0) 06/27/23 15:00 PTT Ratio 1.1 06/27/23 15:00 Sodium 139 mmol/L (136-145) 06/27/23 15:00 Potassium 3.5 mmol/L (3.5-5.1) 06/27/23 15:00 Chloride 104 mmol/L (98-107) 06/27/23 15:00 Carbon Dioxide 28 mmol/L (21-32) 06/27/23 15:00 Anion Gap 7 (3-11) 06/27/23 15:00 BUN 22 mg/dl (6-23) 06/27/23 15:00 Creatinine 1.03 mg/dl (0.6-1.2) 06/27/23 15:00 Est Cr Clr Drug Dosing Not Reportable 06/27/23 15:00 Est GFR ( Amer) 58.2 ml/min 06/27/23 15:00 Est GFR (Non-Af Amer) 50.2 ml/min 06/27/23 15:00 BUN/Creatinine Ratio 21.4 (10-20) H 06/27/23 15:00 Glucose 156 mg/dl (70-99(Fasting)) H 06/27/23 15:00 Calcium 9.5 mg/dl (8.6-10.3) 06/27/23 15:00 Total Bilirubin 0.7 mg/dl (0.2-1.0) 06/27/23 15:00 AST 22 U/L (13-39) 06/27/23 15:00 ALT 13 U/L (7-52) 06/27/23 15:00 Alkaline Phosphatase 77 U/L (34-104) 06/27/23 15:00 Troponin I High Sens 14.8 pg/ml (0-14) H 06/27/23 15:00 B-Natriuretic Peptide 316 pg/ml (0-100) H 06/27/23 15:00 Total Protein 6.8 gm/dl (6.0-8.3) 06/27/23 15:00 Albumin 4.0 gm/dl (3.4-5.0) 06/27/23 15:00 Globulin 2.8 gm/dl (2.5-4.0) 06/27/23 15:00 Albumin/Globulin Ratio 1.4 (0.9-2) 06/27/23 15:00 Lipase 41 U/L (11-82) 06/27/23 15:00 Impressions Chest X-Ray 06/27/23 14:53 XR chest 1V portable CLINICAL HISTORY: Chest pain, nonspecific TECHNIQUE: Single frontal radiograph of the chest was obtained. Comparison: Comparison is made to chest radiograph 06/01/2019 FINDINGS: No lines and tubes are seen. Cardiomegaly is noted. The aortic arch is calcified. Ascending aorta valve prosthesis is seen. Reticular interstitial opacities are seen. No evidence of pleural effusion or pneumothorax. IMPRESSION: No acute chest disease. Cardiomegaly is noted. ACT 112: Negative or not required by law. Electronically signed by: Mk Amaya M.D. 06/27/2023 3:33 PM ECG Additional Comments: DICTATED BY: Warren Paulino MD Test Reason : Blood Pressure : / mmHG Vent. Rate : 084 BPM Atrial Rate : 000 BPM P-R Int : 000 ms QRS Dur : 078 ms QT Int : 380 ms P-R-T Axes : 000 -29 030 degrees QTc Int : 449 ms Atrial fibrillation Abnormal ECG When compared with ECG of 16-MAR-2023 09:36, No significant change was found Confirmed by Warren Paulino ([id number] on 06/27/2023 4:48:55 PM Referred By: Confirmed By:Warren Paulino PG Care Time/CCT Total # of Minutes Spent Total Time Spent with Patient: Total time spent is greater than 50% in coordination of care (as documented) at patient's floor/unit and/or counseling patient: Coding Level of Care Code 62618 INT INP/OBS CARE 2/55MIN Diagnoses SUTTON (dyspnea on exertion) R06.00 Paroxysmal atrial fibrillation I48.0 Hypertension I10 Dyslipidemia E78.5
[2023-06-27] MEDS ORDERED: METOPROLOL SUCC 50MG EXT REL TAB PO STA (22:22)
[2023-06-27] MEDS ORDERED: APIXABAN 5 MG TABLET PO STA (22:22)
[2023-06-27] MEDS ORDERED: ROSUVASTATIN CALCIUM 20 MG TAB PO STA (22:22)
[2023-06-27] MEDS ORDERED: LORazepam 0.5 MG TAB PO PRN (23:26)
[2023-06-27] MEDS ORDERED: GABAPENTIN 100 MG CAP PO PRN (23:26)
[2023-06-27] MEDS ORDERED: ACETAMINOPHEN 325 MG TAB PO PRN (23:26)
[2023-06-27] MEDS ORDERED: ONDANSETRON INJ 2 MG/ML 2 ML VIAL IV PRN (23:26)
[2023-06-28 00:31] LABS: Magnesium 1.7 mg/dl (1.7-2.4)
[2023-06-28 00:39] LABS: Troponin I High Sensitivity 15.2 pg/ml (0-14)
[2023-06-28 06:44] LABS: Hematocrit (blood only) 34.9 % (37.0-47.0); Hemoglobin 11.5 g/dl (12.0-16.0); Mean Corpuscular Hemoglobin 31.9 pg (25.0-34.0); Mean Corpuscular Volume 96.7 fL (80.0-100.0); Mean Platelet Volume 10.3 fL (9.4-12.4); Platelet Count 224 K/uL (130-400); RDW Coefficient of Variation 14.6 % (11.5-14.5); RDW Standard Deviation 51.6 fL (36.4-46.3); Red Blood Count 3.61 M/uL (4.20-5.40)
[2023-06-28 06:59] LABS: BUN Creatinine Ratio 19.2 (10-20); Calcium 9.6 mg/dl (8.6-10.3); Creatinine Clr Calc Pharmacy 44.9 ml/min; Est GFR (African American) 57.5 ml/min; Est GFR (Non-African American) 49.6 ml/min; Potassium 3.2 mmol/L (3.5-5.1)
[2023-06-28] MEDS ORDERED: APIXABAN 5 MG TABLET PO SCH (09:00)
[2023-06-28] MEDS ORDERED: FUROSEMIDE 40 MG/4 ML VIAL IV SCH (09:00)
[2023-06-28] MEDS ORDERED: LOSARTAN POTASSIUM 25 MG TAB PO SCH (09:00)
--- NOTE | 2023-06-28 11:16 | Cardiology Consultation ---
Date of Consultation June 28, 2023 Assessment & Plan (1) Exertional dyspnea: (2) (HFpEF) heart failure with preserved ejection fraction: (3) History of transcatheter aortic valve implantation (RAYMUNDO): (4) Permanent atrial fibrillation: (5) On anticoagulant therapy: Plan 82-year-old woman with permanent atrial fibrillation status post TAVR September 2022 admitted with subacute onset HFpEF. She diuresed well and symptoms essentially resolved overnight. She may not require routine furosemide, but she does still appear mildly hypervolemic. Recommend discharge with furosemide 40 mg daily until she loses 3 pounds further from her discharge weight, at which time she could take daily Dyazide (triamterene/HCTZ 37.5/25) with furosemide reserved for abrupt weight gain, edema, or other evidence of recurrent CHF. While she is taking the furosemide she should be on a potassium supplement as well (potassium chloride 20 mEq daily) given propensity to hypokalemia. As noted on current echocardiogram TAVR is functioning well and LV systolic function is preserved. Etiology of her transient arm and jaw discomfort is uncertain, but she had normal coronary arteries prior to TAVR, an unremarkable troponin curve currently, and no evidence of ischemia on ECG. Cardiology follow-up with Dr. Ramirez as well as Carli Nava Pa-C in heart failure clinic in 1 to 2 weeks to further adjust volume status and diuretics. History of Present Illness Attending Physician: Barbie Diaz MD History of Present Illness 82-year-old woman with history of permanent atrial fibrillation (apixaban/metoprolol), status post TAVR September 2022, who noted gradually progressive dyspnea on exertion and leg edema and was admitted 06/27/2023 with subacute onset congestive heart failure. She had done well post TAVR for severe aortic stenosis September 2022, however in recent months she has noted progressive dyspnea exertion and leg edema and she had 1 episode of left arm and jaw discomfort prompting ER evaluation yesterday. Of note, cardiac catheterization July 2022 prior to her TAVR showed no coronary artery disease. She was chronically on hydrochlorothiazide 12.5 mg daily and had not taken furosemide prior to her current admission. She did receive IV furosemide yesterday and again this morning and noted brisk diuresis, she feels much better and currently notes no dyspnea, chest pain, or other somatic complaints. She is anxious to return home. Allergies Allergy/AdvReac Type Severity Reaction Status Date / Time No Known Allergies Allergy Verified 06/27/23 18:39 Home Medications Medication Instructions Recorded Confirmed Type Wheeled Walker #1 ea 11/02/21 05/16/23 Rx itvonjkq-rvw-ccoevd 5 mg-zeaxanth 2 cap PO BID 05/10/22 06/27/23 History 1 mg-bilberry 7.5 mg-herbal capsule ([employer] Formula) hydrochlorothiazide 12.5 mg tablet 12.5 mg PO QAM #90 tabs 01/08/23 06/27/23 Rx telmisartan 20 mg tablet 20 mg PO QAM #90 tabs 01/08/23 06/27/23 Rx ondansetron 4 mg disintegrating 4 - 8 mg (1 - 2 x 4 mg) PO Q8H PRN 03/16/23 06/27/23 Rx tablet nausea and vomiting #14 tabs amoxicillin 500 mg tablet 2,000 mg PO DIRECTED PRN 1 HR 06/27/23 06/27/23 History PRIOR TO PROCEDURES apixaban 5 mg tablet (Eliquis) 5 mg PO BID 06/27/23 06/27/23 History cholecalciferol (vitamin D3) 50 50 mcg PO DAILY 06/27/23 06/27/23 History mcg (2,000 unit) capsule (Vitamin D3) gabapentin 100 mg capsule 200 mg PO QPM PRN RESTLESS LEG 06/27/23 06/27/23 History SYNDROME lorazepam 0.5 mg tablet 0.25 mg PO DAILY PRN anxiety 06/27/23 06/27/23 History metoprolol succinate 100 mg 100 mg PO HS 06/27/23 06/27/23 History tablet,extended release 24 hr rosuvastatin 20 mg tablet 20 mg PO HS 06/27/23 06/27/23 History Patient History Medical History SUTTON (dyspnea on exertion) Lumbosacral facet joint syndrome Chronic low back pain Severe aortic stenosis by prior echocardiogram Left rotator cuff tear LUQ abdominal pain LLQ abdominal pain Encounter for pre-operative examination PONV (postoperative nausea and vomiting) RLS (restless legs syndrome) GERD (gastroesophageal reflux disease) Aortic valve stenosis SOB (shortness of breath) on exertion recently noted sob with walking -- scheduled for stress test 11/21 @ [place] Atrial fibrillation dx 2 years ago, on Eliquis -- follows with Dr. Ramirez Chest pressure Trigger finger Spinal stenosis Hx of basal cell carcinoma forehead Cataract BL Macular degeneration BL Diverticular disease Irritable bowel syndrome with diarrhea Insomnia Carpal tunnel syndrome Aortic stenosis Moderate aortic stenosis (BERNICE 1.0cm2, MG 13.2mmhg) Anemia Osteoarthritis Diverticulitis Surgical History History of bilateral knee replacement History of carpal tunnel release LEFT History of colonoscopy History of appendectomy History of tooth extraction History of tonsillectomy History of adenoidectomy History of tubal ligation History of cholecystectomy Family History Mother Family history of diabetes mellitus Mother Family history of diabetes mellitus Myocardial infarction Other No family history of adverse response to anesthesia Denies family history of Ovarian cancer Prostate cancer Breast cancer Colorectal cancer Social History Smoking Status: Former smoker Tobacco Type: Cigarettes Age Started Using Tobacco: 17; Age Quit Using Tobacco: 29; packs per day: 0.25; Cigarettes Per Day: QUIT OVER 50 YEARS AGO; Second Hand Exposure: Yes (as a child); Do You Dip or Chew Tobacco: No; Hx Alcohol Use: Yes Alcohol type: wine Alcohol Intake Frequency: 2-3 x/Week Hx Substance Use: No Preferred Language: Omani Communication Ability: Effective Visual Impairment: No Limitations Hearing Ability: Normal Morning Nanny Required: No Beliefs That Will Affect Care: None marital status: / Current Living Situation: Alone Current Living Situation Comment: Independent apt. 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 BP normotensive. Pulse 74 bpm and irregular. Skin: no ecchymoses or generalized lesions. HEENT: unremarkable. Neck: JVP at the clavicle at 90 degrees, no carotid bruits. Lungs: Scattered rhonchi and decreased breath sounds bilaterally, no obvious crackles and no accessory muscle use. No wheezing. Cardiac: irregular rhythm, 2/6 crescendo decrescendo systolic ejection murmur right upper sternal border which is nonradiating, intact aortic closure sound, no diastolic murmur. Abdomen: benign. Extremities: 1-2+ pretibial edema, pulses intact. Neurologic: normal affect and conversation, nonfocal. Results & Data Laboratory Results Troponin values 14, 15, and 18. Sodium 142, chloride 104, potassium 3.2, BUN 20, creatinine 1.04. BNP 316. No baseline. Diagnostic Findings ECG on admission showed atrial fibrillation with ventricular rate 84 bpm. Compared with 03/16/2023 study, no significant change. Chest x-ray showed increased pulmonary vasculature without effusions. Echocardiogram post TAVR at [facility] September 2022 showed normal LV size and systolic function (EF 60 to 65%) with a properly functioning TAVR. Echocardiogram today showed EF 55 to 60% with moderate LVH no wall motion abnormalities, appropriately functioning TAVR, mild pulmonary hypertension and mildly dilated inferior vena cava. PG Care Time/CCT Total # of Minutes Spent Total Time Spent with Patient: Total time spent is greater than 50% in coordination of care (as documented) at patient's floor/unit and/or counseling patient: Coding Level of Care Code 68680 IN/OBS CONSULT LVL 4,60M Diagnoses Exertional dyspnea R06.09 (HFpEF) heart failure with preserved ejection fraction I50.30 History of transcatheter aortic valve implantation (RAYMUNDO) Z95.2 Permanent atrial fibrillation I48.21 On anticoagulant therapy Z79.01
--- NOTE | 2023-06-28 11:32 | XCELERA ---
[id number]
[2023-06-28] MEDS ORDERED: POTASSIUM CHLORIDE CRTAB 20 MEQ TABCR PO STA (11:53)
--- NOTE | 2023-06-28 12:11 | Discharge Summary ---
Discharge Summary Date of Service June 28, 2023 Notes For Next Care Provider Medication Changes From Visit Discontinue HCTZ Start lasix 40mg po daily along with KCl 20 meq po daily until lose 3 lbs, then take prn weight gain> 3 lbs in 24 hrs or prn leg swelling/SOB Start triamterene/HCTZ 37.5mg/25mg po qAM Admission HPI Per Admitting Provider Vicki Ricks is a pleasant 82yo female with history of atrial fibrillation, HTN, HLP and aortic stenosis s/p TAVR on 09/13/2022 at [facility] presenting with progressive dyspnea. Patient reports that over the last several months she has noticed progressive dyspnea on exertion as well as decreased exercise tolerance. Her symptoms have been acutely worse over the last 2-3 weeks. She becomes short of breath with ambulating short distances such as 15-20 feet across her home. Today she had an episode of tightness in her left arm and an achy feeling in her jaw. She called the office of her primary physical anthropologist (Dr. Ramirez) today and was instructed to come to the ER for further evaluation. She also reports bilateral LE edema, cry cough and occasional chest tightness/pressure that occurs with exertion. She does not closely monitor her weight and does not note any marked increase. She has occasional nausea in the morning. Additionally she denies fever, chills, any new or concerning abdominal pain, vomiting or diarrhea In the ER patient is afebrile, HD stable, NAD ER Course: Lasix 40mg IV - 19:26 Principal Dx & Hospital Course #1 = Principal Diagnosis (1) (HFpEF) heart failure with preserved ejection fraction: 82yo female with history of permanent atrial fibrillation on Eliquis anticoagulation, aortic stenosis s/p TAVR September 2022 presenting with progressive SUTTON, decreased exercise tolerance and edema. Last echo from 09/14/22 with normal LV size and function with no regional WMA. EF of 60-65%, biatrial enlargement. TAVR in place - well seated with appropriate gradients. She also mentioned intermittent left jaw pain not always with exertion and thinks it's more related to clicking in her jaw and arthritis With mild elevation of troponin at 14.8 but serially stayed the same at 15 and then 18 BNP at 316. CXR with cardiomegaly and reticular opacities She admits to eating high amounts of sodium at times. Is on HCTZ 12.5mg daily only as diuretic Afib rates mostly 80s here but quickly goes up to 160s with any activity ECHO here with preserved EF, dilated RV with mildly reduced RV function, dilated IVC, AVR in place and functioning normally Improved quickly with diuresis with Lasix 40mg IV x 2 doses -consulted Cardiology-recommends dc HCTZ and take lasix 40mg po daily along w/ KCl 20 meq po daily until loses 3 more lbs at home and then convert to HCTZ/triamterene 37.5/25 mg daily -refer to CHF clinic and f/u with Cardiology in 1-2 weeks -daily weights at home and fluid restrict to 1500mL -low sodium diet -could consider up titration in metoprolol dose for improved rate control-can be managed as outpt -BPs are controlled to low normal for the most part (2) Hypertension: Chronic. Stable -Continue Telmisartan and added lasix, triamterene/HCTZ as above continue toprol XL (3) Dyslipidemia: Chronic. Stable -Continue Crestor 20mg po daily (4) Permanent atrial fibrillation: with rates high with activity to 160s briefly, resting HR 80s consider up titration of Toprol XL-defer to Cardiology as outpt (5) History of transcatheter aortic valve implantation (RAYMUNDO): in 09/2022 in [place] has f/u planned for 09/2023 Plan DVT proph-ELiquis Dispo-dc to home Discharge Exam Constitutional WD/WN, vitals as above Respiratory normal respiratory effort Auscultation: + rhonchi (upper to mid lung pugh bilat); no crackles and no wheezes Cardiovascular Rate/Rhythm: regular rate and + irregularly irregular Heart Sounds: no murmur Extremities: + edema (trace edema legs bilat) Gastrointestinal (Abdomen) normal bowel sounds, soft, nontender, no hepatosplenomegaly Psychiatric A+Ox3, euthymic affect Updated Medication List Medication Instructions Recorded Confirmed Type Wheeled Walker #1 ea 11/02/21 05/16/23 Rx [id number] 5 mg-zeaxanth 2 cap PO BID 05/10/22 06/27/23 History 1 mg-bilberry 7.5 mg-herbal capsule ([employer] Formula) telmisartan 20 mg tablet 20 mg PO QAM #90 tabs 01/08/23 06/27/23 Rx ondansetron 4 mg disintegrating 4 - 8 mg (1 - 2 x 4 mg) PO Q8H PRN 03/16/23 06/27/23 Rx tablet nausea and vomiting #14 tabs amoxicillin 500 mg tablet 2,000 mg PO DIRECTED PRN 1 HR 06/27/23 06/27/23 History PRIOR TO PROCEDURES apixaban 5 mg tablet (Eliquis) 5 mg PO BID 06/27/23 06/27/23 History cholecalciferol (vitamin D3) 50 50 mcg PO DAILY 06/27/23 06/27/23 History mcg (2,000 unit) capsule (Vitamin D3) gabapentin 100 mg capsule 200 mg PO QPM PRN RESTLESS LEG 06/27/23 06/27/23 History SYNDROME lorazepam 0.5 mg tablet 0.25 mg PO DAILY PRN anxiety 06/27/23 06/27/23 History metoprolol succinate 100 mg 100 mg PO HS 06/27/23 06/27/23 History tablet,extended release 24 hr rosuvastatin 20 mg tablet 20 mg PO HS 06/27/23 06/27/23 History furosemide 40 mg tablet 40 mg PO DAILY PRN weight gain>3 06/28/23 Rx lbs or leg swelling #30 tabs potassium chloride 20 mEq 20 meq PO DAILY PRN to be taken 06/28/23 Rx tablet,extended release with lasix #30 tabs triamterene 37.5 1 tab PO QAM #30 tabs 06/28/23 Rx mg-hydrochlorothiazide 25 mg tablet Hospital Stay Data Consultations 06/27/23 19:07 ED Decision to Admit Stat 06/28/23 08:36 Consult Cardiology Routine 06/28/23 11:51 [facility] CHF Program Referral Routine Diagnostic Imagining Performed ECHO Pending Results Patient Have Any Pending Studies at Discharge: No Discharge Instructions Given to Patient (Per Discharging Provider) You were admitted with excessive fluid due to congestive heart failure. You were given lasix through the IV and had improvement. Please continue on lasix 40mg daily along with a potassium supplement until you lose 3 more pounds of body weight. After that, you should start Dyazide 37.5mg/25mg once daily in the morning and only take the lasix and potassium as needed for weight gain. You should eat a low sodium diet and limit your fluid intake to 1500mL/day. Call your Primary Care doctor if any of the following symptoms or problems start or get worse: * Shortness of breath or difficulty breathing * Wake up at night short of breath * Chest pain * Cough * Swelling of your hands, feet, or legs * More fatigued or tired with your normal activity * Palpitations - sudden fast heart beats WEIGHT * Weigh yourself every morning after using the bathroom. * Use the same scale. * Wear the same amount of clothing. * Write your weight down on a chart. * Call your Primary Care doctor if you gain more than 2-3 pounds in 1-2 days. MEDICATIONS * Use this discharge instruction sheet for medication instructions. * Take your medications at the time your doctor ordered. * Do not skip a dose of your medicines. * If you miss a dose of medicine, take it as soon as possible, but DO NOT DOUBLE A DOSE. * Read your medicine information when you get home. * Know all of the side effects of your medicine. If in doubt, ask your pharmacist * Call your Primary Care doctor's office if you have any side effects. * Be sure all of your doctors know what medicine and herbs you take (including cold, flu, and herbal medicine). Take the following with you to your follow-up doctor appointments: * Weight Chart * Medication List * List of questions Do not drink excessive alcohol, beer or wine. Total Time Total Time Spent Total Time Spent (In Minutes): 35 min Total Time Includes: Examination of the Patient, Discharge Planning, Medication Reconciliation and Communication With Other Providers (Ms. Nava of CHF clinic) Coding Level of Care Code 21142 INP/OBS DISCH >30 MIN Diagnoses (HFpEF) heart failure with preserved ejection fraction I50.30 Hypertension I10 Dyslipidemia E78.5 Permanent atrial fibrillation I48.21 History of transcatheter aortic valve implantation (RAYMUNDO) Z95.2
[2023-06-28] MEDS ORDERED: METOPROLOL SUCC 50MG EXT REL TAB PO SCH (21:00)
[2023-06-28] MEDS ORDERED: ROSUVASTATIN CALCIUM 20 MG TAB PO SCH (21:00)
== END 2023-06-28 12:45 | disposition home or self-care (01) | DRG 291 ==
LOC: ED 14:40 → SUATTDRO 19:55 → EDINP 19:55 → INTOOBSV 19:55 → EDINP 06-28 01:49 → 2N 06-28 02:14

== ENCOUNTER 2024-03-03 06:29 | Inpatient (IN) ==
--- NOTE | 2024-03-03 06:37 | Emergency Department Note ---
Impression & Plan Acute hypoxemic respiratory failure, Human metapneumovirus (hMPV) pneumonia ED Provider Note NAME: UCHE HUTSON AGE: 83 SEX: F : 1940 ARRIVES VIA: Ambulance INFORMANT: Patient, ED PROVIDER(S): Markos Serna MD CHIEF COMPLAINT: Shortness of breath MEDICAL DECISION MAKING: Patient presents due to concern for worsening shortness of breath and associated wheezing. IV was established and blood work was obtained. Review of the patient's weight shows no significant change in the last half year maybe 0.5 kg. Blood work shows a normal white count hemoglobin and platelet count. The patient's kidney function is unremarkable. The patient does have an elevated troponin and BNP at 38-13 respectively. Urinalysis does show concerns for infection. Patient was ordered IV Rocephin. Patient reportedly was hypoxic with ambulation to and from the bathroom at 87%. Patient does have some worsening hyponatremia. Bio fire shows positive human metapneumovirus. I did speak with the on-call hospital service after evaluating informed the patient she is comfortable with inpatient stay. Patient was ordered additional Xopenex as well as a dose of IV steroids to help with her wheezing and breathing. Patient feels relatively comfortable at rest currently. Patient was admitted by Dr. Escudero. Discussion w/ other healthcare providers: Cm Roque PA-C and Dr. Escudero Prior /Outside records reviewed: I reviewed a cardiology visit with Dr. Mcclain from October 14, 2023. Patient with a known history of aortic stenosis heart failure with preserved ejection fraction A-fib SUTTON hypertension hyperlipidemia. Differential diagnosis: Reactive airway disease, pneumonia, pneumothorax, COPD, CHF, ACS, pulmonary embolism, musculoskeletal, GERD as well as other pathologies were considered. Diagnostics, as interpreted by me: ECG: A-fib, rate of 79, normal QRS duration, normal axis no ST elevations. Cardiac monitoring: An order was placed for continuous cardiac monitoring. The monitor shows a rate of 85 with irregularly irregular rhythm. Patient was placed on pulse oximetry Medical decision rules: Imaging studies: I informally interpreted the patient's chest x-ray shows cardiomegaly. No obvious pneumothorax with formal report to follow. HPI: Patient presented on Saturday does have a known history of heart failure with preserved ejection fraction A-fib on anticoagulation had a chief complaint shortness of breath at that time. Patient was noted to be in A-fib at that time. 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 Patient presents due to concern for worsening shortness of breath. The patient states that she is unable to lay flat with worsening exertional dyspnea. The patient has had nonproductive cough and associated wheezing. Patient had called the office and was instructed to continue her regular medications. The patient will take doses of Lasix for any weight gain greater than 2 pounds with the patient has not had that. The patient does not believe that she has had significant lower extremity swelling. Patient is to have a heart failure office visit on . The patient denies any chest pains. The patient denies any abdominal pain or nausea vomiting. Appetite has been good although the patient slept poorly last evening to where she felt like she did not sleep at all last night. Patient reportedly did call the office on Saturday and was advised to continue her regular medications but no increase in Lasix given that she has not had any significant weight gain. Patient denies any known sick contacts or recent travel. Remote history of smoking 50 years ago but the patient does not have any history of asthma or reactive airway disease but the patient reports that she has had some associated wheezing. PAST MEDICAL HISTORY: See Below PAST SURGICAL HISTORY: See Below SOCIAL HISTORY: See Below HOME MEDICATIONS: See Below ALLERGIES: See Below VITALS: See Below PHYSICAL EXAMINATION: GENERAL: NAD, non-toxic. Wearing glasses. EYE EXAM: Normal conjunctiva. PERRL, no anisocoria and EOM's grossly intact w/o pain. OROPHARYNX: Moist mucus membranes, grossly normal dentition. NECK: Trachea midline, no stridor. LUNGS: Bilateral wheezing noted on exam. Normal chest wall mechanics. HEART: Irregularly irregular, no MRG. ABDOMEN: Abdomen soft, non-tender, no masses, no rebound or guarding. BACK: No CVA TTP. SKIN: No rashes and no bruising. UPPER EXTREMITIES: Upper extremities are grossly normal. LOWER EXTREMITIES: Grossly normal, trace pretibial edema without calf pain or erythema. NEURO EXAM: A&O x3, cranial nerves II-XII grossly intact, normal speech, moves all 4 extremities. Past Med/Surg History Problem List Human metapneumovirus (hMPV) pneumonia (Acute) Acute hypoxemic respiratory failure (Acute) Hyponatremia UTI (urinary tract infection) Infection due to human metapneumovirus (hMPV) SOB (shortness of breath) Acute dyspnea (Acute) On anticoagulant therapy Permanent atrial fibrillation (HFpEF) heart failure with preserved ejection fraction Lumbosacral facet joint syndrome Chronic low back pain History of transcatheter aortic valve implantation (RAYMUNDO) (09/2022) Trochanteric bursitis, left hip Degenerative joint disease of left hip Normal left ventricular systolic function and wall motion Carotid bruit Rotator cuff tear arthropathy Left rotator cuff tear Esophageal reflux (Chronic) Hyperglycemia (Chronic) Hypertension (Chronic) Osteopenia (Chronic) 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 (Chronic) Dyslipidemia LVH (left ventricular hypertrophy) History of joint replacement Other skilled nursing (current) drug therapy Trigger finger Right carpal tunnel syndrome Rupture of right rotator cuff History of bilateral knee replacement Medical History Severe aortic stenosis by prior echocardiogram LUQ abdominal pain LLQ abdominal pain Encounter for pre-operative examination PONV (postoperative nausea and vomiting) RLS (restless legs syndrome) GERD (gastroesophageal reflux disease) Aortic valve stenosis SOB (shortness of breath) on exertion recently noted sob with walking -- scheduled for stress test 11/21 @ [place] Atrial fibrillation dx 2 years ago, on Eliquis -- follows with Dr. Ramirez Chest pressure Spinal stenosis Hx of basal cell carcinoma forehead Cataract BL Macular degeneration BL Diverticular disease Irritable bowel syndrome with diarrhea Insomnia Carpal tunnel syndrome Aortic stenosis Moderate aortic stenosis (BERNICE 1.0cm2, MG 13.2mmhg) Anemia Osteoarthritis Diverticulitis Surgical History History of carpal tunnel release LEFT History of colonoscopy History of appendectomy History of tooth extraction History of tonsillectomy History of adenoidectomy History of tubal ligation History of cholecystectomy Family History Mother Family history of diabetes mellitus Mother Family history of diabetes mellitus Myocardial infarction Other No family history of adverse response to anesthesia Denies family history of Ovarian cancer Prostate cancer Breast cancer Colorectal cancer Social History Smoking Status: Former smoker Tobacco Type: Cigarettes Age Started Using Tobacco: 17; Age Quit Using Tobacco: 29; packs per day: 0.25; Cigarettes Per Day: QUIT OVER 50 YEARS AGO; Second Hand Exposure: No (as a child); Do You Dip or Chew Tobacco: No; Hx Alcohol Use: Yes Alcohol type: wine Alcohol Intake Frequency: 2-3 x/Week Hx Substance Use: No Preferred Language: Faroese Communication Ability: Effective Visual Impairment: No Limitations Hearing Ability: Normal Regulator Mechanic Required: No Beliefs That Will Affect Care: None marital status: / Current Living Situation: Alone Current Living Situation Comment: Independent apt. 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 current occupational status: retired Feels Safe at Home: Yes Childhood Exposure to Second-Hand Smoke: Yes Diet: low salt Dental Care, Regularly: Yes Physical Activity Frequency: 3-4 Times per Week Seatbelt Use: always Sunscreen Use: Yes Assistive Devices: Wheelchair Allergies Allergies Allergy/AdvReac Type Severity Reaction Status Date / Time No Known Allergies Allergy Verified 11/19/23 13:31 Home Meds Home Medications Medication Instructions Recorded Confirmed [id number] 5 mg-zeaxanth 2 cap PO BID 05/10/22 03/03/24 1 mg-bilberry 7.5 mg-herbal capsule (Macular Health Formula) amoxicillin 500 mg tablet 2,000 mg PO DIRECTED PRN 1 HR 06/27/23 03/03/24 PRIOR TO PROCEDURES cholecalciferol (vitamin D3) 50 50 mcg PO DAILY 06/27/23 03/03/24 mcg (2,000 unit) capsule (Vitamin D3) lorazepam 0.5 mg tablet 0.25 mg PO DAILY PRN anxiety 06/27/23 03/03/24 Previous Rx's Medication Instructions Recorded Wheeled Walker #1 ea 11/02/21 furosemide 40 mg tablet 40 mg PO DAILY PRN weight gain>3 06/28/23 lbs or leg swelling #30 tabs potassium chloride 20 mEq 20 meq PO DAILY PRN to be taken 06/28/23 tablet,extended release with lasix #30 tabs spironolactone 25 1 tab PO DAILY #90 tabs 07/11/23 mg-hydrochlorothiazide 25 mg tablet rosuvastatin 20 mg tablet 20 mg PO HS #90 tabs 09/03/23 metoprolol succinate 100 mg 100 mg PO HS #90 tabs 09/25/23 tablet,extended release 24 hr apixaban 5 mg tablet (Eliquis) 5 mg PO BID #180 tabs 10/07/23 gabapentin 100 mg capsule 200 mg (2 x 100 mg) PO QPM PRN 01/29/24 RESTLESS LEG SYNDROME #90 caps Results & Data (ED) Vital Signs Vital Signs - 24 hr 03/03/24 06:34 03/03/24 06:34 03/03/24 06:34 Pulse Rate Pulse Rate [Apical] Respiratory Rate 19 Respiratory Effort / Characteristics Non-Labored Spontaneous Non-Labored Spontaneous Respiratory Depth Normal Normal Respiratory Pattern Regular Blood Pressure [Right Arm] Blood Pressure Mean [Right Arm] Pulse Oximetry 97 97 Oxygen Delivery Method Room Air Room Air Room Air Oxygen Flow Rate 0 0 Sepsis Recent Fever Within 48 Hours No Sepsis New/Unexplained Change in Mental Status N/A Sepsis Action Taken by Nursing No Action Required 03/03/24 07:00 03/03/24 09:50 Pulse Rate 82 Pulse Rate [Apical] 92 H Respiratory Rate 16 20 Respiratory Effort / Characteristics Respiratory Depth Respiratory Pattern Blood Pressure [Right Arm] 133/95 Blood Pressure Mean [Right Arm] 107 Pulse Oximetry 99 97 Oxygen Delivery Method Room Air Room Air Oxygen Flow Rate Sepsis Recent Fever Within 48 Hours Sepsis New/Unexplained Change in Mental Status Sepsis Action Taken by Shelter Medications Current Medication List: was personally reviewed by me Laboratory Data Attestation: I reviewed the patient's lab results. 03/03/24 06:45 03/03/24 06:45 Lab Results 03/03/24 03/03/24 03/03/24 Range/Units 06:45 06:46 06:56 WBC 9.54 (4.8-10.8) K/ul RBC 4.32 (4.20-5.40) M/uL Hgb 13.8 (12.0-16.0) g/dl Hct 38.5 (37.0-47.0) % MCV 89.1 (80.0-100.0) fL MCH 31.9 (25.0-34.0) pg MCHC 35.8 (32.0-36.0) g/dL RDW Std Deviation 47.8 H (36.4-46.3) fL RDW Coeff of Leida 14.7 H (11.5-14.5) % Plt Count 196 (130-400) K/uL MPV 10.2 (9.4-12.4) fL Immature Gran % (Auto) 0.3 % Neut % (Auto) 67.4 % Lymph % (Auto) 22.2 % [place] % (Auto) 8.5 % Eos % (Auto) 1.3 % Baso % (Auto) 0.3 % Neut # (Auto) 6.43 (1.40-6.50) K/uL Lymph # (Auto) 2.12 (1.20-3.40) K/uL [place] # (Auto) 0.81 H (0.11-0.59) K/uL Eos # (Auto) 0.12 (0.00-0.50) K/uL Baso # (Auto) 0.03 (0.00-0.20) K/uL Immature Gran # (Auto) 0.03 (0.01-0.20) K/uL Sodium 125 L (136-145) mmol/L Potassium 3.1 L (3.5-5.1) mmol/L Chloride 86 L (98-107) mmol/L Carbon Dioxide 27 (21-32) mmol/L Anion Gap 12 H (3-11) BUN 26 H (6-23) mg/dl Creatinine 1.16 (0.6-1.2) mg/dl Est Cr Clr Drug Dosing 39.1 ml/min Est GFR ( Amer) 50.1 ml/min Est GFR (Non-Af Amer) 43.2 ml/min BUN/Creatinine Ratio 22.4 H (10-20) Glucose 107 H (70-99(Fasting)) mg/dl Osmolality 264 L (280-300) mOsm/kg Calcium 9.2 (8.6-10.3) mg/dl Magnesium 1.7 (1.7-2.4) mg/dl Total Bilirubin 0.9 (0.2-1.0) mg/dl AST 37 (13-39) U/L ALT 17 (7-52) U/L Alkaline Phosphatase 81 (34-104) U/L Troponin I High Sens 38.9 H (0-14) pg/ml B-Natriuretic Peptide 213 H (0-100) pg/ml Total Protein 6.8 (6.0-8.3) gm/dl Albumin 4.2 (3.4-5.0) gm/dl Globulin 2.6 (2.5-4.0) gm/dl Albumin/Globulin Ratio 1.6 (0.9-2) Procalcitonin 0.07 (0-0.5) ng/ml Urine Color Yellow Urine Appearance Cloudy A (Clear) Urine pH 5.5 (4.5-7.5) Ur Specific [place] 1.007 (1.000-1.030) Urine Protein Negative (Negative) Urine Glucose (UA) Negative (Negative) Urine Ketones Negative (Negative) Urine Blood 2+ H (Negative) Urine Nitrite Positive A (Negative) Urine Bilirubin Negative (Negative) Urine Urobilinogen Negative (Negative) Ur Leukocyte Esterase 3+ H (Negative) Urine WBC (Auto) >50 H (0-5) /hpf Urine RBC (Auto) 3-5 H (0-2) /hpf U Hyaline Cast (Auto) 3-5 H (0-2) /lpf U Epithel Cells (Auto) 0-2 (0-2) /hpf Urine Bacteria (Auto) 4+ H (None Seen) Urine Osmolality 231 L (500-800) mOsm/kg Ur Random Sodium 75 mmol/L Adenovirus (PCR) Not Detected (NotDetected) B. pertussis DNA (PCR) Not Detected (NotDetected) B.parapertussis DNA PCR Not Detected (NotDetected) C. pneumoniae DNA (PCR) Not Detected (NotDetected) Coronavirus OC43 (PCR) Not Detected (NotDetected) Coronavirus HKU1 (PCR) Not Detected (NotDetected) Coronavirus 229E (PCR) Not Detected (NotDetected) SARS-CoV-2 (PCR) Not Detected (NotDetected) Coronavirus NL63 (PCR) Not Detected (NotDetected) Human Metapneumovir PCR DETECTED A (NotDetected) Influenza Type A (PCR) Not Detected (NotDetected) Influenza Type B (PCR) Not Detected (NotDetected) M. pneumoniae (PCR) Not Detected (NotDetected) Parainfluenza 1 (PCR) Not Detected (NotDetected) Parainfluenza 2 (PCR) Not Detected (NotDetected) Parainfluenza 3 (PCR) Not Detected (NotDetected) Parainfluenza 4 (PCR) Not Detected (NotDetected) RSV (PCR) Not Detected (NotDetected) Entero/Rhino (PCR) Not Detected (NotDetected) 03/03/24 Range/Units 09:23 WBC (4.8-10.8) K/ul RBC (4.20-5.40) M/uL Hgb (12.0-16.0) g/dl Hct (37.0-47.0) % MCV (80.0-100.0) fL MCH (25.0-34.0) pg MCHC (32.0-36.0) g/dL RDW Std Deviation (36.4-46.3) fL RDW Coeff of Leida (11.5-14.5) % Plt Count (130-400) K/uL MPV (9.4-12.4) fL Immature Gran % (Auto) % Neut % (Auto) % Lymph % (Auto) % [place] % (Auto) % Eos % (Auto) % Baso % (Auto) % Neut # (Auto) (1.40-6.50) K/uL Lymph # (Auto) (1.20-3.40) K/uL [place] # (Auto) (0.11-0.59) K/uL Eos # (Auto) (0.00-0.50) K/uL Baso # (Auto) (0.00-0.20) K/uL Immature Gran # (Auto) (0.01-0.20) K/uL Sodium (136-145) mmol/L Potassium (3.5-5.1) mmol/L Chloride (98-107) mmol/L Carbon Dioxide (21-32) mmol/L Anion Gap (3-11) BUN (6-23) mg/dl Creatinine (0.6-1.2) mg/dl Est Cr Clr Drug Dosing ml/min Est GFR ( Amer) ml/min Est GFR (Non-Af Amer) ml/min BUN/Creatinine Ratio (10-20) Glucose (70-99(Fasting)) mg/dl Osmolality (280-300) mOsm/kg Calcium (8.6-10.3) mg/dl Magnesium (1.7-2.4) mg/dl Total Bilirubin (0.2-1.0) mg/dl AST (13-39) U/L ALT (7-52) U/L Alkaline Phosphatase (34-104) U/L Troponin I High Sens 31.5 H (0-14) pg/ml B-Natriuretic Peptide (0-100) pg/ml Total Protein (6.0-8.3) gm/dl Albumin (3.4-5.0) gm/dl Globulin (2.5-4.0) gm/dl Albumin/Globulin Ratio (0.9-2) Procalcitonin (0-0.5) ng/ml Urine Color Urine Appearance (Clear) Urine pH (4.5-7.5) Ur Specific [place] (1.000-1.030) Urine Protein (Negative) Urine Glucose (UA) (Negative) Urine Ketones (Negative) Urine Blood (Negative) Urine Nitrite (Negative) Urine Bilirubin (Negative) Urine Urobilinogen (Negative) Ur Leukocyte Esterase (Negative) Urine WBC (Auto) (0-5) /hpf Urine RBC (Auto) (0-2) /hpf U Hyaline Cast (Auto) (0-2) /lpf U Epithel Cells (Auto) (0-2) /hpf Urine Bacteria (Auto) (None Seen) Urine Osmolality (500-800) mOsm/kg Ur Random Sodium mmol/L Adenovirus (PCR) (NotDetected) B. pertussis DNA (PCR) (NotDetected) B.parapertussis DNA PCR (NotDetected) C. pneumoniae DNA (PCR) (NotDetected) Coronavirus OC43 (PCR) (NotDetected) Coronavirus HKU1 (PCR) (NotDetected) Coronavirus 229E (PCR) (NotDetected) SARS-CoV-2 (PCR) (NotDetected) Coronavirus NL63 (PCR) (NotDetected) Human Metapneumovir PCR (NotDetected) Influenza Type A (PCR) (NotDetected) Influenza Type B (PCR) (NotDetected) M. pneumoniae (PCR) (NotDetected) Parainfluenza 1 (PCR) (NotDetected) Parainfluenza 2 (PCR) (NotDetected) Parainfluenza 3 (PCR) (NotDetected) Parainfluenza 4 (PCR) (NotDetected) RSV (PCR) (NotDetected) Entero/Rhino (PCR) (NotDetected) Administered Medications Albuterol (Albut/Ipratrop 3mg/0.5mg Neb 3 Ml Vial) 3 ml NEB Q6R [facility]; Protocol Stop: 04/02/24 12:59 Last Admin: 03/03/24 13:01 Dose: 3 ml Documented By: OTTONIEL Guaifenesin (Guaifenesin Sugar Free 200 Mg/10 Ml Udc) 200 mg PO Q6H KARMEN Stop: 04/02/24 10:44 Last Admin: 03/03/24 11:40 Dose: 200 mg Documented By: OTTONIEL Discontinued Medications Apixaban (Apixaban 5 Mg Tablet) 5 mg PO NOW STA Stop: 03/03/24 10:34 Last Admin: 03/03/24 11:15 Dose: 5 mg Documented By: OTTONIEL Ceftriaxone Sodium (Rocephin) 2,000 mg in 50 mls @ 100 mls/hr IV NOW STA Stop: 03/03/24 08:43 Last Infusion: 03/03/24 08:54 Dose: Infused Documented By: Admin: 03/03/24 08:22 Dose: 100 mls/hr Documented By: OTTONIEL Magnesium Sulfate/Dextrose (Magnesium Sulfate / D5w) 1 gm in 100 mls @ 50 mls/hr IV ONE ONE Stop: 03/03/24 12:51 Last Infusion: 03/03/24 13:25 Dose: Infused Documented By: Admin: 03/03/24 11:15 Dose: 50 mls/hr Documented By: OTTONIEL Levalbuterol HCl (Levalbuterol 1.25 Mg/3 Ml Neb) 1.25 mg NEB NOW STA Stop: 03/03/24 06:48 Last Admin: 03/03/24 07:04 Dose: 1.25 mg Documented By: OTTONIEL Levalbuterol HCl (Levalbuterol 1.25 Mg/3 Ml Neb) 1.25 mg NEB NOW STA Stop: 03/03/24 09:25 Last Admin: 03/03/24 09:33 Dose: 1.25 mg Documented By: OTTONIEL Methylprednisolone (Methylprednisolone 125 Mg/2 Ml Vial) 60 mg IV NOW STA Stop: 03/03/24 09:25 Last Admin: 03/03/24 09:33 Dose: 60 mg Documented By: OTTONIEL Potassium Chloride (Potassium Chloride Crtab 20 Meq Tabcr) 40 meq PO NOW STA Stop: 03/03/24 10:16 Last Admin: 03/03/24 10:20 Dose: 40 meq Documented By: OTTONIEL Imaging Data Radiologist's Impression: Chest X-Ray 03/03/24 06:47 XR chest 1V portable HISTORY: Dyspnea COMPARISON: Chest 02/28/2024. FINDINGS: No pneumothorax. No pleural effusions. The heart remains enlarged. An aortic valve prosthesis is again noted. Lucency within the periphery of the left midlung zone favors an overlapping skin fold. No acute fractures. Chronic interstitial thickening persists. Mild pulmonary vascular congestion has improved. No new focal lung consolidations. Right basilar linear densities persist and favor subsegmental atelectasis. IMPRESSION: 1. Stable cardiomegaly. 2. Interval improvement in the pulmonary vascular congestion. 3. Right basilar linear densities persist and favor subsegmental atelectasis. ACT 112: Negative or not required by law. Electronically signed by: Denton Brady M.D. 03/03/2024 7:22 AM Discharge Plan Visit Data Chief Complaint: Shortness of Breath/Dyspnea Stated Complaint: DIZZY, WHEEZING, HERE SATURDAY FOR SAME ED Provider: Markos Serna Discharge Problem: Acute hypoxemic respiratory failure, Human metapneumovirus (hMPV) pneumonia Discharge Instructions Interventions: ED Discharge Assessment Last Done: 03/03/24 13:10
[2024-03-03] MEDS: LEVALBUTEROL 1.25 MG/3 ML NEB NEB STA ×2 (07:04→09:33)
[2024-03-03 07:15] LABS: Basophils # (auto) 0.03 K/uL (0.00-0.20); Basophils % (auto) 0.3 %; Eosinophils # (auto) 0.12 K/uL (0.00-0.50); Eosinophils % (auto) 1.3 %; Hematocrit (blood only) 38.5 % (37.0-47.0); Hemoglobin 13.8 g/dl (12.0-16.0); Immature Granulocytes # (auto) 0.03 K/uL (0.01-0.20); Immature Granulocytes % (auto) 0.3 %; Lymphocytes # (auto) 2.12 K/uL (1.20-3.40); Lymphocytes % (auto) 22.2 %; Mean Corpuscular Hemoglobin 31.9 pg (25.0-34.0); Mean Corpuscular Hgb Conc 35.8 g/dL (32.0-36.0); Mean Corpuscular Volume 89.1 fL (80.0-100.0); Mean Platelet Volume 10.2 fL (9.4-12.4); Monocytes # (auto) 0.81 K/uL (0.11-0.59); Monocytes % (auto) 8.5 %; Neutrophils # (auto) 6.43 K/uL (1.40-6.50); Neutrophils % (auto) 67.4 %; Platelet Count 196 K/uL (130-400); RDW Coefficient of Variation 14.7 % (11.5-14.5); RDW Standard Deviation 47.8 fL (36.4-46.3); Red Blood Count 4.32 M/uL (4.20-5.40); White Blood Count 9.54 K/ul (4.8-10.8)
--- NOTE | 2024-03-03 07:23 | XRay Report ---
XR chest 1V portable HISTORY: Dyspnea COMPARISON: Chest 02/28/2024. FINDINGS: No pneumothorax. No pleural effusions. The heart remains enlarged. An aortic valve prosthes is is again noted. Lucency within the periphery of the left midlung zone favors an overlapping skin f old. No acute fractures. Chronic interstitial thickening persists. Mild pulmonary vascular congestion has improved. No new focal lung consolidations. Right basilar linear densities persist and favor sub segmental atelectasis. IMPRESSION: 1. Stable cardiomegaly. 2. Interval improvement in the pulmonary vascular congestion. 3. Right basilar linear densities persist and favor subsegmental atelectasis. ACT 112: Negative or not required by law. Electronically signed by: Denton Brady M.D. 03/03/2024 7:22 AM
[2024-03-03 07:24] LABS: Albumin Globulin Ratio 1.6 (0.9-2); Albumin Level 4.2 gm/dl (3.4-5.0); BUN Creatinine Ratio 22.4 (10-20); Bilirubin,Total 0.9 mg/dl (0.2-1.0); Calcium 9.2 mg/dl (8.6-10.3); Creatinine Clr Calc Pharmacy 39.1 ml/min; Est GFR (African American) 50.1 ml/min; Est GFR (Non-African American) 43.2 ml/min; Globulin 2.6 gm/dl (2.5-4.0); Magnesium 1.7 mg/dl (1.7-2.4); Potassium 3.1 mmol/L (3.5-5.1); Total Protein 6.8 gm/dl (6.0-8.3)
[2024-03-03 07:30] LABS: Troponin I High Sensitivity 38.9 pg/ml (0-14)
[2024-03-03 07:55] LABS: Adenovirus PCR Not Detected (NotDetected); Bordetella parapertussis PCR Not Detected (NotDetected); Bordetella pertussis PCR Not Detected (NotDetected); Chlamydia pneumoniae PCR Not Detected (NotDetected); Coronavirus 229E PCR Not Detected (NotDetected); Coronavirus CoV-2 (COVID19)PCR Not Detected (NotDetected); Coronavirus HKU1 PCR Not Detected (NotDetected); Coronavirus NL63 PCR Not Detected (NotDetected); Coronavirus OC43PCR Not Detected (NotDetected); Human Metapneumovirus PCR DETECTED (NotDetected); Influenza A PCR Not Detected (NotDetected); Influenza B PCR Not Detected (NotDetected); Mycoplasma pneumoniae PCR Not Detected (NotDetected); Parainfluenza Virus 1 PCR Not Detected (NotDetected); Parainfluenza Virus 2 PCR Not Detected (NotDetected); Parainfluenza Virus 3 PCR Not Detected (NotDetected); Parainfluenza Virus 4 PCR Not Detected (NotDetected); Respiratory Syncytial VirusPCR Not Detected (NotDetected); Rhinovirus/Enterovirus PCR Not Detected (NotDetected)
[2024-03-03 08:04] LABS: Appearance Urine Cloudy (Clear); Bacteria Urine Automated 4+ (None Seen); Bilirubin Urine Negative (Negative); Blood Urine 2+ (Negative); Color Urine Yellow; Epithelial Cell Urine Auto 0-2 /hpf (0-2); Glucose Urine UA Negative (Negative); Ketones Urine Negative (Negative); Leukocyte Esterase Urine 3+ (Negative); Nitrite Urine Positive (Negative); Protein Urine Negative (Negative); Specific Gravity Urine 1.007 (1.000-1.030); Urobilinogen Urine Negative (Negative); WBC Urine Automated >50 /hpf (0-5); pH Urine 5.5 (4.5-7.5)
[2024-03-03] MEDS: cefTRIAXone SODIUM 2,000 MG/50 ML BAG IV STA (08:22)
[2024-03-03] MEDS: methylPREDNISolone 125 MG/2 ML VIAL IV STA (09:33)
--- NOTE | 2024-03-03 10:13 | History & Physical Report ---
Date of Service March 03, 2024 Assessment & Plan (1) SOB (shortness of breath): Plan: Admit to med/telemetry on pulse oximetry Currently stable on room air at rest but reportedly desaturated with SpO2 into the 80s while ambulating to the bathroom prior to admission Presenting to the ED with approximately 1 week of ongoing shortness of breath, nonproductive cough, wheezing Was seen in the [facility] ED on 02/29/2024, symptoms were thought to be due to CHF and she was given IV Lasix prior to discharge Found to be positive for human metapneumovirus today, no signs of volume overload on exam Status post 2 levalbuterol nebulizer treatments, 60 mg IV Solu-Medrol in the ED Will continue with as needed DuoNebs, incentive spirometry, and as needed O2 to keep SpO2 at or above 92% Will hold further IV steroids for now as she does not have a known history of reactive airway disease or COPD Home Eliquis for DVT prophylaxis Heart healthy diet AM CBC, CMP, mag, PT/INR (2) Hyponatremia: Plan: Sodium of 125 today, patient has been asymptomatic Per her recent history, it appears after hypotension is likely a combination of poor oral intake of solids, increased free water intake, and ongoing spironolactone use Appears euvolemic today Serum osmolality, urine osmolality, and urine sodium have been ordered at time admission we will follow-up For now we will continue with free water restriction and will hold on diuretics today Follow-up electrolytes and volume status tomorrow, can resume home spironolactone when stable (3) Infection due to human metapneumovirus (hMPV): Plan: See shortness of breath (4) UTI (urinary tract infection): Plan: Patient has been experiencing nausea, poor appetite, and urinary frequency UA today is consistent with UTI No previous history of resistant organisms in her system Status post 1 dose of ceftriaxone in ED, will continue ceftriaxone for now Follow urine culture (5) Hypokalemia: Plan: Potassium of 3.1 today, mag is 1.7 Likely due to reduced oral intake over the past week and IV Lasix given while in the ED on 02/29/2024 Will give 40 M EQ p.o. KCl and 1 g IV mag sulfate on admission Hold diuretics for now Monitor on telemetry and follow a.m. electrolytes (6) Permanent atrial fibrillation: Plan: Currently in rate controlled A-fib at the time of exam Continue home Eliquis and metoprolol (7) (HFpEF) heart failure with preserved ejection fraction: Plan: Currently euvolemic on exam Holding home spironolactone and as needed Lasix the day due to hyponatremia Can resume home spironolactone when electrolytes are stable Plan The patient was discussed with Dr. Escudero at the time of admission History of Present Illness Chief Complaint: SOB, orthopnea Primary Care Provider: Sanchez Ivy MD Mayra is a 83-year-old female with a past medical history significant for 83yo female with history of permanent atrial fibrillation on Eliquis anticoagulation, aortic stenosis s/p TAVR September 2022, hypertension, hyperlipidemia, PMR who presented to the [facility] ED via EMS on 03/03/2024 with progressive shortness of breath, wheezing, and orthopnea which started on 02/28/2024. She was noted to be tachycardic on arrival at 92 but otherwise stable. Labs were significant for a sodium of 125, potassium of 3.1, initial high-sensitivity troponin of 38 down to 31 on 2-hour repeat, UA with cloudy appearance, nitrite positive, 3+ leukocyte esterase, greater than 50 WBC, 4+ bacteria, and epithelial cells within normal limits, as well as full respiratory bio fire positive for human metapneumovirus. Chest x-ray was read as stable cardiomegaly, interval improvement in the pulmonary vascular congestion, and right basilar linear densities persist in favor of subsegmental atelectasis. Prior to admission the patient was initially given 60 mg IV Solu-Medrol and a levalbuterol nebulizer treatment along with a dose of ceftriaxone. The patient became hypoxic during ambulatory trial on room air and was stable at rest on room air following ambulatory trial. Patient was sitting in bed in no acute distress at the time of exam. She confirms that she has been having approximately 1 week of respiratory symptoms including wheezing, nonproductive cough, and shortness of breath with exertion. Confirms that she has been taking her spironolactone daily as prescribed and denies taking recent doses of as needed p.o. Lasix since receiving IV Lasix in the ED on 02/29/2024. States that she has had recurrent episodes of nausea without vomiting limiting oral intake of solids. Has mainly been drinking plain water to try and stay hydrated. Denies recent fever/chills, chest pain, hemoptysis, abdominal pain, dysuria, diarrhea, lower extremity swelling, and recent trauma. She confirms that she is a DNR/DNI and her daughter, Daysi, is her medical power of privacy attorney. Please refer to Dr. Escudero's attestation for any changes to the treatment plan Allergies Allergy/AdvReac Type Severity Reaction Status Date / Time No Known Allergies Allergy Verified 11/19/23 13:31 Home Medications Medication Instructions Recorded Confirmed Type Wheeled Walker #1 ea 11/02/21 11/19/23 Rx [id number] 5 mg-zeaxanth 2 cap PO BID 05/10/22 03/03/24 History 1 mg-bilberry 7.5 mg-herbal capsule (Macular Health Formula) amoxicillin 500 mg tablet 2,000 mg PO DIRECTED PRN 1 HR 06/27/23 03/03/24 History PRIOR TO PROCEDURES cholecalciferol (vitamin D3) 50 50 mcg PO DAILY 06/27/23 03/03/24 History mcg (2,000 unit) capsule (Vitamin D3) lorazepam 0.5 mg tablet 0.25 mg PO DAILY PRN anxiety 06/27/23 03/03/24 History furosemide 40 mg tablet 40 mg PO DAILY PRN weight gain>3 06/28/23 03/03/24 Rx lbs or leg swelling #30 tabs potassium chloride 20 mEq 20 meq PO DAILY PRN to be taken 06/28/23 03/03/24 Rx tablet,extended release with lasix #30 tabs spironolactone 25 1 tab PO DAILY #90 tabs 07/11/23 03/03/24 Rx mg-hydrochlorothiazide 25 mg tablet rosuvastatin 20 mg tablet 20 mg PO HS #90 tabs 09/03/23 03/03/24 Rx metoprolol succinate 100 mg 100 mg PO HS #90 tabs 09/25/23 03/03/24 Rx tablet,extended release 24 hr apixaban 5 mg tablet (Eliquis) 5 mg PO BID #180 tabs 10/07/23 03/03/24 Rx gabapentin 100 mg capsule 200 mg (2 x 100 mg) PO QPM PRN 01/29/24 03/03/24 Rx RESTLESS LEG SYNDROME #90 caps Past Med/Surg History Problem List Human metapneumovirus (hMPV) pneumonia (Acute) Acute hypoxemic respiratory failure (Acute) Hyponatremia UTI (urinary tract infection) Infection due to human metapneumovirus (hMPV) SOB (shortness of breath) Acute dyspnea (Acute) On anticoagulant therapy Permanent atrial fibrillation (HFpEF) heart failure with preserved ejection fraction Lumbosacral facet joint syndrome Chronic low back pain History of transcatheter aortic valve implantation (RAYMUNDO) (09/2022) Trochanteric bursitis, left hip Degenerative joint disease of left hip Normal left ventricular systolic function and wall motion Carotid bruit Rotator cuff tear arthropathy Left rotator cuff tear Esophageal reflux (Chronic) Hyperglycemia (Chronic) Hypertension (Chronic) Osteopenia (Chronic) snf (current) use of anticoagulants (Chronic) Dyslipidemia LVH (left ventricular hypertrophy) History of joint replacement Other chcf (current) drug therapy Trigger finger Right carpal tunnel syndrome Rupture of right rotator cuff History of bilateral knee replacement Medical History Severe aortic stenosis by prior echocardiogram LUQ abdominal pain LLQ abdominal pain Encounter for pre-operative examination PONV (postoperative nausea and vomiting) RLS (restless legs syndrome) GERD (gastroesophageal reflux disease) Aortic valve stenosis SOB (shortness of breath) on exertion recently noted sob with walking -- scheduled for stress test 11/21 @ [place] Atrial fibrillation dx 2 years ago, on Eliquis -- follows with Dr. Ramirez Chest pressure Spinal stenosis Hx of basal cell carcinoma forehead Cataract BL Macular degeneration BL Diverticular disease Irritable bowel syndrome with diarrhea Insomnia Carpal tunnel syndrome Aortic stenosis Moderate aortic stenosis (BERNICE 1.0cm2, MG 13.2mmhg) Anemia Osteoarthritis Diverticulitis Surgical History History of carpal tunnel release LEFT History of colonoscopy History of appendectomy History of tooth extraction History of tonsillectomy History of adenoidectomy History of tubal ligation History of cholecystectomy Family History Mother Family history of diabetes mellitus Mother Family history of diabetes mellitus Myocardial infarction Other No family history of adverse response to anesthesia Denies family history of Ovarian cancer Prostate cancer Breast cancer Colorectal cancer Social History Smoking Status: Former smoker Tobacco Type: Cigarettes Age Started Using Tobacco: 17; Age Quit Using Tobacco: 29; packs per day: 0.25; Cigarettes Per Day: QUIT OVER 50 YEARS AGO; Second Hand Exposure: No (as a child); Do You Dip or Chew Tobacco: No; Hx Alcohol Use: Yes Alcohol type: wine Alcohol Intake Frequency: 2-3 x/Week Hx Substance Use: No Preferred Language: Upper Sorbian Communication Ability: Effective Visual Impairment: No Limitations Hearing Ability: Normal Volleyball Assembler Required: No Beliefs That Will Affect Care: None marital status: / Current Living Situation: Alone Current Living Situation Comment: Independent apt. 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 HEENT: Normocephalic, atraumatic, no scleral icterus, pupils around round, symmetrical, and reactive to light, moist mucus membranes, trachea midline, no thyromegaly Chest/Pulm: No respiratory distress, symmetrical chest expansion, scattered expiratory wheezing throughout Cardiac: irregular rate and rhythm, 3/6 systolic murmur noted Abdomen: Negative for ascites and bruising, normoactive bowel sounds, soft, non-tender to palpation throughout Musculoskeletal: Symmetrical and without signs of acute trauma, upper and lower extremities with full ROM, no atrophy, spasticity, or flaccidity Extremities: Radial, dorsalis pedis, and posterior tibial pulses are intact and symmetrical, no edema noted in the BL LE's Skin: Warm, dry, no rashes , lesions, or scars noted Neuro: Alert and oriented to person, place, month, year, and president, no focal defects, no tremors noted Psych: No acute distress, calm and cooperative during the exam Results & Data Results & Data Vital Signs (Past 12 Hours) Vital Signs Pulse Pulse Resp BP Pulse Ox O2 Del Method O2 Flow Rate 03/03/24 09:50 92 H 20 133/95 97 Room Air 03/03/24 07:00 82 16 99 Room Air 03/03/24 06:34 97 Room Air 0 03/03/24 06:34 19 97 Room Air 03/03/24 06:34 Room Air 0 Laboratory Results Abnormal lab results 03/03/24 03/03/24 03/03/24 Range/Units 06:45 06:46 06:56 RDW Std Deviation 47.8 H (36.4-46.3) fL RDW Coeff of Leida 14.7 H (11.5-14.5) % Marquette # (Auto) 0.81 H (0.11-0.59) K/uL Sodium 125 L (136-145) mmol/L Potassium 3.1 L (3.5-5.1) mmol/L Chloride 86 L (98-107) mmol/L Anion Gap 12 H (3-11) BUN 26 H (6-23) mg/dl BUN/Creatinine Ratio 22.4 H (10-20) Glucose 107 H (70-99(Fasting)) mg/dl Troponin I High Sens 38.9 H (0-14) pg/ml B-Natriuretic Peptide 213 H (0-100) pg/ml Urine Appearance Cloudy A (Clear) Urine Blood 2+ H (Negative) Urine Nitrite Positive A (Negative) Ur Leukocyte Esterase 3+ H (Negative) Urine WBC (Auto) >50 H (0-5) /hpf Urine RBC (Auto) 3-5 H (0-2) /hpf U Hyaline Cast (Auto) 3-5 H (0-2) /lpf Urine Bacteria (Auto) 4+ H (None Seen) Human Metapneumovir PCR DETECTED A (NotDetected) 03/03/24 Range/Units 09:23 RDW Std Deviation (36.4-46.3) fL RDW Coeff of Leida (11.5-14.5) % Marquette # (Auto) (0.11-0.59) K/uL Sodium (136-145) mmol/L Potassium (3.5-5.1) mmol/L Chloride (98-107) mmol/L Anion Gap (3-11) BUN (6-23) mg/dl BUN/Creatinine Ratio (10-20) Glucose (70-99(Fasting)) mg/dl Troponin I High Sens 31.5 H (0-14) pg/ml B-Natriuretic Peptide (0-100) pg/ml Urine Appearance (Clear) Urine Blood (Negative) Urine Nitrite (Negative) Ur Leukocyte Esterase (Negative) Urine WBC (Auto) (0-5) /hpf Urine RBC (Auto) (0-2) /hpf U Hyaline Cast (Auto) (0-2) /lpf Urine Bacteria (Auto) (None Seen) Human Metapneumovir PCR (NotDetected) Diagnostic Findings Chest X-Ray 03/03/24 06:47 XR chest 1V portable HISTORY: Dyspnea COMPARISON: Chest 02/28/2024. FINDINGS: No pneumothorax. No pleural effusions. The heart remains enlarged. An aortic valve prosthesis is again noted. Lucency within the periphery of the left midlung zone favors an overlapping skin fold. No acute fractures. Chronic interstitial thickening persists. Mild pulmonary vascular congestion has improved. No new focal lung consolidations. Right basilar linear densities persist and favor subsegmental atelectasis. IMPRESSION: 1. Stable cardiomegaly. 2. Interval improvement in the pulmonary vascular congestion. 3. Right basilar linear densities persist and favor subsegmental atelectasis. ACT 112: Negative or not required by law. Electronically signed by: Denton Brady M.D. 03/03/2024 7:22 AM ECG Additional Comments: Undetermined rhythm Left axis deviation Minimal voltage criteria for LVH, may be normal variant ( Durga product ) Abnormal ECG When compared with ECG of 28-FEB-2024 07:49, Current undetermined rhythm precludes rhythm comparison, needs review Code Status & VTE Plan Code Status DNR/DNI VTE Prophylaxis Plan VTE Prophylaxis will be ordered: Yes Supervising Physician Co-Signing Physician Notes I personally saw and examined the patient. I verified all dumont points and agree with Cm Roque PA-C with the following exceptions and/or additions: 83 year old female presents to the ER with shortness of breath. No history of COPD or asthma. Admission recommended due to hypoxia on exertion and hyponatremia. O/E HS RRR, no murmurs, no respiratory distress, Chest CTAB, Abdo SNT, no pedal edema A/P Human metapneumovirus - contact precautions, symptomatic treatment only, can use duoneb as needed for but given no reactive airway disease no need for steroids Hyponatremia - Suspected SIADH due to infections, fluid restrict, NaCl 1g PO BID, repeat level in AM, aim 6-8 meq increase in 24 hours UTI - ceftriaxone, follow up urine culture PG Care Time/CCT Total # of Minutes Spent Total Time Spent with Patient: Total time spent is greater than 50% in coordination of care (as documented) at patient's floor/unit and/or counseling patient: Coding [place] [address] INT INP/OBS CARE 3/75MIN Patient Type Established Medical Decision Making High Complexity Diagnoses SOB (shortness of breath) R06.02 Hyponatremia E87.1 Infection due to human metapneumovirus (hMPV) B34.8 UTI (urinary tract infection) N39.0 Hypokalemia E87.6 Permanent atrial fibrillation I48.21 (HFpEF) heart failure with preserved ejection fraction I50.30
[2024-03-03] MEDS: POTASSIUM CHLORIDE CRTAB 20 MEQ TABCR PO STA (10:20)
[2024-03-03] MEDS: APIXABAN 5 MG TABLET PO STA (11:15)
[2024-03-03] MEDS: MAGNESIUM SULFATE / D5W 1 GM/100 ML BAG IV ONE (11:15)
[2024-03-03] MEDS: guaiFENesin SUGAR FREE 200 MG/10 ML UDC PO SCH (11:40)
--- NOTE | 2024-03-03 11:50 | Electrocardiogram Report ---
Test Reason : Blood Pressure : / mmHG Vent. Rate : 079 BPM Atrial Rate : 084 BPM P-R Int : 000 ms QRS Dur : 092 ms QT Int : 400 ms P-R-T Axes : 000 -47 032 degrees QTc Int : 458 ms Atrial fibrillation Left anterior fascicular block Minimal voltage criteria for LVH, may be normal variant ( Henry product ) Abnormal ECG When compared with ECG of 28-FEB-2024 07:49, No significant change Confirmed by Warren Paulino ([id number]) on 03/03/2024 11:50:07 AM Referred By: REFERRED SELF Confirmed By:Warren Paulino
[2024-03-03] MEDS: ALBUT/IPRATROP 3MG/0.5MG NEB 3 ML VIAL NEB SCH (13:01)
[2024-03-03] MEDS ORDERED: GABAPENTIN 100 MG CAP PO PRN (18:21)
[2024-03-03] MEDS: SODIUM CHLORIDE 1 GM TABLET PO STA ×2 (19:49→21:51)
[2024-03-03] MEDS: ROSUVASTATIN CALCIUM 20 MG TAB PO SCH (19:51)
[2024-03-03] MEDS: METOPROLOL SUCC 50MG EXT REL TAB PO SCH (19:51)
[2024-03-03] MEDS ORDERED: ALBUT/IPRATROP 3MG/0.5MG NEB 3 ML VIAL NEB PRN (21:45)
[2024-03-03] MEDS: APIXABAN 5 MG TABLET PO SCH (21:52)
[2024-03-04 06:51] LABS: Basophils # (auto) 0.02 K/uL (0.00-0.20); Basophils % (auto) 0.1 %; Hemoglobin 14.1 g/dl (12.0-16.0); Immature Granulocytes # (auto) 0.03 K/uL (0.01-0.20); Immature Granulocytes % (auto) 0.2 %; Lymphocytes # (auto) 1.46 K/uL (1.20-3.40); Lymphocytes % (auto) 9.8 %; Mean Corpuscular Hemoglobin 31.7 pg (25.0-34.0); Mean Corpuscular Hgb Conc 36.2 g/dL (32.0-36.0); Mean Corpuscular Volume 87.6 fL (80.0-100.0); Monocytes # (auto) 0.53 K/uL (0.11-0.59); Monocytes % (auto) 3.6 %; Neutrophils # (auto) 12.79 K/uL (1.40-6.50); Neutrophils % (auto) 86.3 %; Platelet Count 222 K/uL (130-400); RDW Coefficient of Variation 14.6 % (11.5-14.5); RDW Standard Deviation 47.1 fL (36.4-46.3); Red Blood Count 4.45 M/uL (4.20-5.40); White Blood Count 14.83 K/ul (4.8-10.8)
[2024-03-04 07:08] LABS: Albumin Globulin Ratio 1.5 (0.9-2); Albumin Level 4.3 gm/dl (3.4-5.0); BUN Creatinine Ratio 21.7 (10-20); Bilirubin,Total 0.8 mg/dl (0.2-1.0); Calcium 9.3 mg/dl (8.6-10.3); Creatinine Clr Calc Pharmacy 38.6 ml/min; Est GFR (African American) 50.6 ml/min; Est GFR (Non-African American) 43.7 ml/min; Globulin 2.9 gm/dl (2.5-4.0); Potassium 3.3 mmol/L (3.5-5.1); Total Protein 7.2 gm/dl (6.0-8.3)
[2024-03-04 07:15] LABS: INR 1.2 (0.9-1.1); Prothrombin Time 12.4 Seconds (9.0-12.0)
[2024-03-04] MEDS: SODIUM CHLORIDE 1 GM TABLET PO SCH (08:28)
[2024-03-04] MEDS ORDERED: SODIUM CHLORIDE 1 GM TABLET PO SCH (09:00)
[2024-03-04] MEDS: POTASSIUM CHLORIDE CRTAB 20 MEQ TABCR PO SCH (09:07)
[2024-03-04] MEDS: cefTRIAXone SODIUM 2,000 MG/50 ML BAG IV SCH (09:40)
[2024-03-04] MEDS: ACETAMINOPHEN 325 MG TAB PO ONE (10:16)
--- NOTE | 2024-03-04 17:38 | Hospitalist Progress Note ---
Date of Service March 04, 2024 Assessment & Plan (1) SOB (shortness of breath): Plan: Admit to med/telemetry on pulse oximetry Currently stable on room air at rest but reportedly desaturated with SpO2 into the 80s while ambulating to the bathroom prior to admission Presenting to the ED with approximately 1 week of ongoing shortness of breath, nonproductive cough, wheezing Was seen in the [facility] ED on 02/29/2024, symptoms were thought to be due to CHF and she was given IV Lasix prior to discharge Found to be positive for human metapneumovirus today, no signs of volume overload on exam Status post 2 levalbuterol nebulizer treatments, 60 mg IV Solu-Medrol in the ED Will continue with as needed DuoNebs, incentive spirometry, and as needed O2 to keep SpO2 at or above 92% Will hold further IV steroids for now as she does not have a known history of reactive airway disease or COPD Home Eliquis for DVT prophylaxis Heart healthy diet Due to hyponatremia, patient will remain hospitalized. (2) Hyponatremia: Plan: Sodium improved to 12, patient has been asymptomatic Per her recent history, it appears after hypotension is likely a combination o f poor oral intake of solids, increased free water intake, and ongoing spironolactone use Appears euvolemic today Serum osmolality, urine osmolality, and urine sodium have been ordered at time admission we will follow-up For now we will continue with free water restriction and will hold on diuretics today Follow-up electrolytes and volume status tomorrow, can resume home spironolactone when stable will reach out to heart failure clinic. (3) Infection due to human metapneumovirus (hMPV): Plan: See shortness of breath (4) UTI (urinary tract infection): Plan: Patient has been experiencing nausea, poor appetite, and urinary frequency UA today is consistent with UTI No previous history of resistant organisms in her system Status post 1 dose of ceftriaxone in ED, will continue ceftriaxone for now Follow urine culture (5) Hypokalemia: Plan: Potassium of 3.1 today, mag is 1.7 Likely due to reduced oral intake over the past week and IV Lasix given while in the ED on 02/29/2024 Will give 40 M EQ p.o. KCl and 1 g IV mag sulfate on admission Hold diuretics for now Monitor on telemetry and follow a.m. electrolytes (6) Permanent atrial fibrillation: Plan: Currently in rate controlled A-fib at the time of exam Continue home Eliquis and metoprolol (7) (HFpEF) heart failure with preserved ejection fraction: Plan: Currently euvolemic on exam Holding home spironolactone and as needed Lasix the day due to hyponatremia Can resume home spironolactone when electrolytes are stable Admission and Anticipated Discharge Date Admission Date: March 03, 2024 Subjective 83 yo female reports no new symptoms. Review of Systems Review of Systems: All systems reviewed & are unremarkable except as noted in HPI & below Physical Exam Physical Exam: General: In no acute distress, stated age, ill appearing but non-toxic. HEENT: Normocephalic, atraumatic Chest/Pulm: No respiratory distress Cardiac: irregular rate and rhythm, 3/6 systolic murmur noted Abdomen: Negative for ascites and bruising, normoactive bowel sounds, soft, non-tender to palpation throughout Musculoskeletal: Symmetrical and without signs of acute trauma, upper and lower extremities with full ROM, no atrophy, spasticity, or flaccidity Extremities: Radial, dorsalis pedis, and posterior tibial pulses are intact and symmetrical, no edema noted in the BL LE's Results & Data Results & Data Vital Signs (Past 12 Hours) Vital Signs Temp Pulse Pulse Resp BP Pulse Ox O2 Del Method 03/04/24 15:30 36.5 C 82 18 103/69 96 Room Air 03/04/24 15:16 89 03/04/24 11:45 36.3 C L 83 18 106/71 95 Room Air 03/04/24 07:39 36.7 C 89 18 127/77 93 Room Air 03/04/24 07:29 Room Air 03/04/24 07:01 86 PG Care Time/CCT Total # of Minutes Spent Total Time Spent with Patient: Total time spent is greater than 50% in coordination of care (as documented) at patient's floor/unit and/or counseling patient: Coding Level of Care Code 16671 SUB INP/OBS CARE 2/35MIN Diagnoses SOB (shortness of breath) R06.02 Hyponatremia E87.1 Infection due to human metapneumovirus (hMPV) B34.8 UTI (urinary tract infection) N39.0 Hypokalemia E87.6 Permanent atrial fibrillation I48.21 (HFpEF) heart failure with preserved ejection fraction I50.30
[2024-03-04] MEDS: LORazepam 0.5 MG TAB PO PRN (20:48)
[2024-03-05 07:48] LABS: Basophils # (auto) 0.03 K/uL (0.00-0.20); Basophils % (auto) 0.2 %; Eosinophils # (auto) 0.04 K/uL (0.00-0.50); Eosinophils % (auto) 0.3 %; Hematocrit (blood only) 39.5 % (37.0-47.0); Hemoglobin 13.5 g/dl (12.0-16.0); Immature Granulocytes # (auto) 0.05 K/uL (0.01-0.20); Immature Granulocytes % (auto) 0.4 %; Lymphocytes # (auto) 2.79 K/uL (1.20-3.40); Lymphocytes % (auto) 20.3 %; Mean Corpuscular Hemoglobin 31.3 pg (25.0-34.0); Mean Corpuscular Hgb Conc 34.2 g/dL (32.0-36.0); Mean Corpuscular Volume 91.6 fL (80.0-100.0); Mean Platelet Volume 10.1 fL (9.4-12.4); Monocytes # (auto) 0.92 K/uL (0.11-0.59); Monocytes % (auto) 6.7 %; Neutrophils # (auto) 9.93 K/uL (1.40-6.50); Neutrophils % (auto) 72.1 %; Platelet Count 208 K/uL (130-400); RDW Coefficient of Variation 15.3 % (11.5-14.5); RDW Standard Deviation 51.6 fL (36.4-46.3); Red Blood Count 4.31 M/uL (4.20-5.40); White Blood Count 13.76 K/ul (4.8-10.8)
[2024-03-05 07:49] LABS: INR 1.1 (0.9-1.1); Prothrombin Time 11.8 Seconds (9.0-12.0)
[2024-03-05 07:53] LABS: Albumin Globulin Ratio 1.5 (0.9-2); BUN Creatinine Ratio 26.6 (10-20); Bilirubin,Total 0.5 mg/dl (0.2-1.0); Calcium 9.6 mg/dl (8.6-10.3); Creatinine Clr Calc Pharmacy 35.9 ml/min; Est GFR (African American) 46.2 ml/min; Est GFR (Non-African American) 39.9 ml/min; Globulin 2.6 gm/dl (2.5-4.0); Magnesium 2.1 mg/dl (1.7-2.4); Potassium 4.2 mmol/L (3.5-5.1); Total Protein 6.6 gm/dl (6.0-8.3)
--- NOTE | 2024-03-05 10:50 | Discharge Summary ---
Date of Service March 05, 2024 Admission HPI Per Admitting Provider Mayra is a 83-year-old female with a past medical history significant for 83yo female with history of permanent atrial fibrillation on Eliquis anticoagulation, aortic stenosis s/p TAVR September 2022, hypertension, hyperlipidemia, PMR who presented to the [facility] ED via EMS on 03/03/2024 with progressive shortness of breath, wheezing, and orthopnea which started on 02/28/2024. She was noted to be tachycardic on arrival at 92 but otherwise stable. Labs were significant for a sodium of 125, potassium of 3.1, initial high-sensitivity troponin of 38 down to 31 on 2-hour repeat, UA with cloudy appe arance, nitrite positive, 3+ leukocyte esterase, greater than 50 WBC, 4+ bacteria, and epithelial cells within normal limits, as well as full respiratory bio fire positive for human metapneumovirus. Chest x-ray was read as stable cardiomegaly, interval improvement in the pulmonary vascular congestion, and right basilar linear densities persist in favor of subsegmental atelectasis. Prior to admission the patient was initially given 60 mg IV Solu-Medrol and a levalbuterol nebulizer treatment along with a dose of ceftriaxone. The patient became hypoxic during ambulatory trial on room air and was stable at rest on room air following ambulatory trial. Patient was sitting in bed in no acute distress at the time of exam. She confirms that she has been having approximately 1 week of respiratory symptoms including wheezing, nonproductive cough, and shortness of breath with exertion. Confirms that she has been taking her spironolactone daily as prescribed and denies taking recent doses of as needed p.o. Lasix since receiving IV Lasix in the ED on 02/29/2024. States that she has had recurrent episodes of nausea without vomiting limiting oral intake of solids. Has mainly been drinking plain water to try and stay hydrated. Denies recent fever/chills, chest pain, hemoptysis, abdominal pain, dysuria, diarrhea, lower extremity swelling, and recent trauma. She confirms that she is a DNR/DNI and her daughter, Daysi, is her medical power of civil rights attorney. Principal Diagnosis SOB Discharge Exam General: In no acute distress, stated age, ill appearing but non-toxic. HEENT: Normocephalic, atraumatic Chest/Pulm: No respiratory distress Cardiac: irregular rate and rhythm, 3/6 systolic murmur noted Abdomen: Negative for ascites and bruising, normoactive bowel sounds, soft, non-tender to palpation throughout Musculoskeletal: Symmetrical and without signs of acute trauma, upper and lower extremities with full ROM, no atrophy, spasticity, or flaccidity Extremities: Radial, dorsalis pedis, and posterior tibial pulses are intact and symmetrical, no edema noted in the BL LE's Discharge Data Allergies Allergy/AdvReac Type Severity Reaction Status Date / Time No Known Allergies Allergy Verified 11/19/23 13:31 Consultations 03/03/24 09:25 ED Decision to Admit Stat 03/04/24 14:26 [facility] [place] [facility] Referral Routine Hospital Course (1) SOB (shortness of breath): Admit to med/telemetry on pulse oximetry Currently stable on room air at rest but reportedly desaturated with SpO2 into the 80s while ambulating to the bathroom prior to admission Presenting to the ED with approximately 1 week of ongoing shortness of breath, nonproductive cough, wheezing Was seen in the [facility] ED on 02/29/2024, symptoms were thought to be due to CHF and she was given IV Lasix prior to discharge Found to be positive for human metapneumovirus today, no signs of volume overload on exam symptoms from virus/ euvolemic \ (2) Hyponatremia: Sodium improved to 12, patient has been asymptomatic Per her recent history, it appears after hypotension is likely a combination of poor oral intake of solids, increased free water intake, and ongoing spironolactone use Appears euvolemic today Serum osmolality, urine osmolality, and urine sodium have been ordered at time admission we will follow-up For now we will continue with free water restriction and will hold on diuretics today Follow-up electrolytes and volume status tomorrow, can resume home spir onolactone when stable will reach out to heart failure clinic. (3) Infection due to human metapneumovirus (hMPV): See shortness of breath (4) UTI (urinary tract infection): Patient has been experiencing nausea, poor appetite, and urinary frequency UA today is consistent with UTI No previous history of resistant organisms in her system completed 3 doses of ceftriaxone (5) Hypokalemia: Potassium of 3.1 today, mag is 1.7 Likely due to reduced oral intake over the past week and IV Lasix given while in the ED on 02/29/2024 (6) Permanent atrial fibrillation: Currently in rate controlled A-fib at the time of exam Continue home Eliquis and metoprolol (7) (HFpEF) heart failure with preserved ejection fraction: Currently euvolemic on exam Holding home spironolactone Continue as needed Lasix the day due to hyponatremia Total Time Total Time Spent Total Time Spent (In Minutes): 32 Discharge Plan Discharge Items Patient Disposition: Home - Self-Care Reason For Visit: WHEEZING, SOB, UTI, HUMANMETAPNEUMOVIRUS,HYPOATREM Discharge Diagnosis: wheezing, SOB Activity: Resume your previous activity Non-emergency contact: Primary Care Provider Call non-emergency contact if: you have any medication questions Follow-up/Referrals: ProSanchez MD [Primary Care Provider] - Karla Nava PA-C [Physician Guest Service Agent] - 03/10/24 10:30 am Diet: Heart Healthy Fluids: 1500ml (6 cups) Addtl Attending Provider Instructions: Recommend followup with PCP in 1-2 weeks. You will followup with Karla Nava next week. We will hold your spironolactone Pending Studies at Discharge: No Stand-Alone Forms: [facility] [employer], Smoking Cessation Medications and DC Order Prescriptions: New guaifenesin 200 mg tablet 200 mg PO Q6H PRN (Reason: cough) Qty: 20 0RF Continued (DME) Wheeled Walker Misc See Rx Instructions .Route Qty: 1 0RF Rx Instructions: WHEELED WALKER WITH SEAT AND HAND BRAKES; DX CODE: I35.0, R26.2 rosuvastatin 20 mg tablet 20 mg PO HS Qty: 90 3RF metoprolol succinate 100 mg tablet extended release 24 hr 100 mg PO HS Qty: 90 3RF Eliquis 5 mg tablet 5 mg PO BID Qty: 180 3RF Rx Instructions: 5 mg twice a day; gabapentin 100 mg capsule 200 mg PO QPM PRN (Reason: RESTLESS LEG SYNDROME) Qty: 90 1RF Macular Health Formula 5-1-7.5 mg capsule 2 cap PO BID cholecalciferol (vitamin D3) [Vitamin D3] 50 mcg (2,000 unit) Capsule 50 mcg PO DAILY amoxicillin 500 mg tablet 2,000 mg PO DIRECTED PRN (Reason: 1 HR PRIOR TO PROCEDURES) lorazepam 0.5 mg tablet 0.25 mg PO DAILY PRN (Reason: anxiety) Rx Instructions: 1/2 tablet to one tablet orally daily PRN; furosemide 40 mg tablet 40 mg PO DAILY PRN (Reason: weight gain>3 lbs or leg swelling) Qty: 30 0RF potassium chloride 20 mEq tablet extended release 20 meq PO DAILY PRN (Reason: to be taken with lasix) Qty: 30 0RF Held spironolacton-hydrochlorothiaz 25-25 mg tablet 1 tab PO DAILY Qty: 90 3RF Hold Instructions: Resume on 03/18/24. until cleared by Karla Nava Discharge Orders: Discharge Order (Routine); Ordered 03/05/24 Ordered By: Jarrett Cuellar Admission Data Admit Date/Time: 03/03/24 10:14 Attending Provider: Jarrett Cuellar Admit Provider: Kaushal Escudero Primary Care Provider: Sanchez Ivy Other Providers: Kaushal Escudero; Karla Nava Other Interventions: Discharge Summary Assessment (RN) Last Done: 03/05/24 10:55 Coding Level of Care Code 19529 INP/OBS DISCH >30 MIN Diagnoses SOB (shortness of breath) R06.02 Hyponatremia E87.1 Infection due to human metapneumovirus (hMPV) B34.8 UTI (urinary tract infection) N39.0 Hypokalemia E87.6 Permanent atrial fibrillation I48.21 (HFpEF) heart failure with preserved ejection fraction I50.30
--- NOTE | 2024-03-07 08:37 | Coding Query ---
CODING QUERY To promote full compliance with coding requirements relating to patient care, provider participation is requested in all cases of roller mill tender uncertainty. Please assist us with the question(s) below: Coding Question(s): Brief inpatient stay- patient adm with shortness of breath, positive Biofire for humanmetapneumovirus- treated with solumedrol, etc. No Significant volume overload. Please document, if known or suspected the manifestation of the human metapneumovirus. Thanks for your help. Jeffery Tee [facility] Physician's Response(s): humanmetapneumovirus infection causing symptoms. Principal Diagnosis: "that condition established after study, to be chiefly responsible for occasioning the admission of the patient to the hospital for care." Co-Existing Principal Diagnosis: "when two or more diagnoses equally meet the criteria for principal diagnosis as determined by the circumstances of admission, diagnostic work up, and/or therapy provided, and the Alphabetic Index, Tabular List, or another coding guideline does not provide sequencing direction, any one of the diagnoses may be sequenced first." "When the physician has documented what appears to be a current diagnosis in the body of the record, but has not included the diagnosis in the final diagnostic statement, the physician should be asked whether the diagnosis should be added." (Source Coding Clinic 2 QTR90. p3-4) ANID
== END 2024-03-05 13:19 | disposition home or self-care (01) | DRG 194 ==
LOC: ED 06:29 → SUATTDRO 10:14 → EDINP 10:14 → 2W 15:05